=== PATIENT | female | born 1960 | race American Indian/Alaskan Native ===

== ENCOUNTER 2016-09-05 04:27 | Emergency (ER) | payer MEDICARE ==
[2016-09-05 04:46] VITALS: BP 124/99
--- NOTE | 2016-09-05 09:13 | Emergency Department Report ---
Upper Extremity - HPI Chief Complaint: Extremity Injury, Upper Stated Complaint: HAND PAIN Time Seen by Provider: 09/05/16 08:54 Upper Extremity: Right Wrist, Right Hand Occurred When: >5 Days Mechanism: Other Severity: moderate Symptoms: Yes Pain with Movement, Yes Numbness, Yes Weakness, No Deformity, No Limited Range of Movement, No Swelling, No Bruising/Ecchymosis, No Laceration or Abrasion Other History: 56-year-old female past medical history none presents with complaint of persistent pain and tingling in right middle ring and pinky finger , worse at night and in the morning, intermittent waxing and waning in intensity. Denies any direct trauma no fever no chills. Patient states she has been taking anti-inflammatories with mild relief of pain. Came to ED today because she was experiencing tingling in right index finger when she woke up this morning. Patient awake alert and oriented 3 fully ambulatory without any assistance, reports no other symptoms. ED Review of Systems ROS: Stated complaint: HAND PAIN Other details as noted in HPI Constitutional: denies: chills, fever Eyes: denies: eye pain, eye discharge, vision change ENT: denies: ear pain, throat pain Respiratory: denies: cough, shortness of breath, wheezing Cardiovascular: denies: chest pain, palpitations Endocrine: no symptoms reported Gastrointestinal: denies: abdominal pain, nausea, diarrhea Genitourinary: denies: urgency, dysuria, discharge Musculoskeletal: as per HPI, other (right middle index and pinky finger pain, wrist pain, occasional paresthesias.). denies: back pain, joint swelling, arthralgia Skin: denies: rash, lesions Neurological: denies: headache, weakness, paresthesias Psychiatric: denies: anxiety, depression Hematological/Lymphatic: denies: easy bleeding, easy bruising ED Past Medical Hx - Past Medical History Previous Medical History?: Yes Hx Hypertension: Yes (2011) Hx Heart Attack/AMI: Yes (2013) Hx Congestive Heart Failure: No Hx Diabetes: No Hx Deep Vein Thrombosis: No Hx Pulmonary Embolism: No Hx Sickle Cell Disease: No Hx Arthritis: Yes Hx Asthma: Yes Hx COPD: Yes Hx Tuberculosis: No Hx HIV: No Additional medical history: sciatica,DIVERTICULITIS. CAD - Surgical History Past Surgical History?: Yes Hx Coronary Stent: Yes Hx Open Heart Surgery: No Hx Pacemaker: No Hx Internal Defibrillator: No Hx Cholecystectomy: No Hx Appendectomy: Yes Hx Breast Surgery: No Additional Surgical History: Tubal ligation, 2 C-sections - Social History Smoking Status: Never Smoker Substance Use Type: None - Medications Home Medications: Home Medications Medication Instructions Recorded Confirmed Last Taken Type Aspirin [Aspirin TAB] 325 mg PO QDAY #30 tablet 05/15/14 08/27/16 08/27/16 Rx Isosorbide Mononitrate [Isosorbide 30 mg PO DAILY #30 tab.er.24h 05/15/1408/27/16 Rx Mononitrate ER] Lisinopril [Zestril TAB] 5 mg PO QDAY #30 tablet 05/15/14 08/27/16 08/27/16 Rx Cholecalciferol (Vitamin D3) 3,000 unit PO DAILY 06/05/15 08/27/16 08/27/16 History [Vitamin D3] Multivit-Min/FA/Calcium/Vit K1 1 each PO DAILY 06/05/15 08/27/16 08/27/16 History [Women's 50+ Daily Tablet] Atorvastatin [Lipitor Tab] 40 mg PO QHS #30 tab 10/22/15 08/27/16 08/26/16 Rx Famotidine [Pepcid] 20 mg PO BID #60 tablet 10/22/15 08/27/16 08/27/16 Rx ALBUTEROL NEB's [Proventil 0.083% 2.5 mg IH Q4H PRN #25 neb 01/25/16 08/27/16 Rx NEBS] Amitriptyline [Elavil] 10 mg PO QHS #30 tab 01/25/16 08/27/16 08/26/16 Rx Folic Acid [Folvite] 1 mg PO QDAY #30 tablet 01/25/16 08/27/16 08/27/16 Rx Ipratropium/Albuterol Sulfate 1 ampul IH TIDRT #30 ampul.neb 01/25/16 08/27/16 02/02/16 Rx [Duoneb 0.5 mg-3 mg/3 ml Soln] Multivitamin Tab W-MINERAL 1 each PO QDAY #30 tablet 01/25/16 08/27/16 08/27/16 Rx [Multiple Vitamin/Mineral (Theragran M)] [place]-3 Fatty Acids/Fish Oil [Fish 1 each PO DAILY #30 tab 01/25/16 08/27/16 Rx Oil] Pantoprazole [Protonix TAB] 20 mg PO BID #60 tablet. 02/04/16 08/27/16 Rx Cetirizine HCl [All Day Allergy] 10 mg PO DAILY 08/27/16 08/27/16 08/27/16 History Ibuprofen [Motrin] 800 mg PO Q8HR PRN #30 tablet 08/27/16 Unknown Rx Metoprolol [Lopressor TAB] 25 mg PO BID 08/27/16 08/27/16 08/27/16 History Ondansetron [Zofran Odt] 4 mg PO Q8HR PRN #20 tab.rapdis 08/27/16 Unknown Rx Oxycodone HCl/Acetaminophen 1 each PO Q6HR PRN #20 tablet 08/27/16 Unknown Rx [Percocet 10/325 mg] Prednisone [predniSONE 10 mg 10 mg PO .TAPER #1 tab.ds.pk 08/27/16 Unknown Rx (6-Day Pack, 21 Tabs)] Sennosides [Senokot] 8.6 mg PO DAILY 08/27/16 08/27/16 08/27/16 History methOCARBAMOL [Robaxin TAB] 500 mg PO Q6H 08/27/16 08/27/16 08/27/16 History oxyCODONE /ACETAMINOPHEN [Percocet 1 tab PO Q6HR PRN 08/27/16 08/27/16 Unknown History 5/325] traMADol [Ultram] 50 mg PO Q6HR PRN 08/27/16 08/27/16 Unknown History Naproxen [Naprosyn TAB] 500 mg PO BID PRN #14 tablet 09/05/16 Unknown Rx Upper Extremity Exam - Exam General: Vital signs noted. No distress. Alert and acting appropriately. Head and Torso: No HEENT Abnormality, No Neck Tenderness, No Chest/Lungs Abnormality, No Abdominal Tenderness, No Back Tenderness Shoulder Exam: Yes Normal Range of Motion in Shoulder, No Shoulder Tenderness, No Clavicle Tenderness, No Shoulder Deformity, No AC Joint Tenderness Arm Exam: No Arm/Humerus Tenderness, No Arm Deformity Elbow: No Elbow Tenderness, No Normal Range of Motion in Elbow, No Elbow Deformity Forearm: No Forearm Tenderness, No Forearm Deformity, No Pain with Pronation, No Pain with Supination Wrist: Yes Wrist Tenderness (positive Phalen and Tinel sign on clinical exam), Yes Normal ROM in Wrist (range of motion wrist fingers fully intact), No Wrist Deformity, No Snuffbox Tenderness (absolutely no snuff box tenderness), No Pain with Axial Thumb Compression Hand: Yes Normal ROM in Digit(s), No Hand Tenderness, No Hand Deformity, No Digit Tenderness, No Digit(s) Deformity, No Tendon Dysfunction CMS Exam: Yes Normal Capillary Refill (capillary refill fully intact all fingers ), No Broken Skin, No Normal Distal Pulses, No Normal Distal Sensation ED Course Vital Signs 09/05/16 09/05/16 04:34 04:45 Temperature 98.8 F 98.8 F Pulse Rate 80 80 Respiratory 18 18 Rate Blood Pressure 124/94 Blood Pressure 124/99 [Right] O2 Sat by Pulse 100 98 Oximetry ED Medical Decision Making - Medical Decision Making A/P: Carpal tunnel syndrome 1-patient has classic clinical symptoms of carpal tunnel including paresthesias in right index pinky and half of right middle finger, positive Phalen and Tinel sign on clinical exam. No trauma no signs of cellulitis distal radial pulses fully intact, capillary refill fully intact range of motion all fingers fully intact 2-emphasized to patient that she should wear a right wrist splint and follow-up with primary care doctor as well as orthopedics if pain persists or to seek out a neurology referral for nerve conduction testing and right wrist hand 3-naproxen when necessary for pain, I reinforced the importance of wearing a wrist splint and provided patient with information carpal tunnel syndrome Critical care attestation.: If time is entered above; I have spent that time in minutes in the direct care of this critically ill patient, excluding procedure time. ED Disposition Clinical Impression: Carpal tunnel syndrome of right wrist Disposition: DISCHARGED TO HOME OR SELFCARE Is pt being admited?: No Does the pt Need Aspirin: No Condition: Stable Instructions: Carpal Tunnel Syndrome (ED) Prescriptions: Naproxen [Naprosyn TAB] 500 mg PO BID PRN #14 tablet PRN Reason: Pain Referrals: PRIMARY CAREMD [Primary Care Provider] - 3-5 Days [facility] [Outside] - 3-5 Days MAKENNA HILARIO MD [Staff Physician] - 3-5 Days KIKI AMAYA MD [Staff Physician] - 3-5 Days
== END 2016-09-05 09:56 | disposition home or self-care (01) ==
LOC: ED 04:27
DX: G56.01 Carpal tunnel syndrome, right upper limb (principal); R20.2 Paresthesia of skin; I10 Essential (primary) hypertension; I25.2 Old myocardial infarction; M19.90 Unspecified osteoarthritis, unspecified site; J45.909 Unspecified asthma, uncomplicated; J44.9 Chronic obstructive pulmonary disease, unspecified; I25.10 Atherosclerotic heart disease of native coronary artery without angina pectoris; Z79.82 Long term (current) use of aspirin

== ENCOUNTER 2017-01-27 10:27 | Emergency (ER) | payer MEDICARE ==
[2017-01-27 10:57] VITALS: BP 149/106
[2017-01-27 11:25] LABS: Eosinophils % (Auto) 0.7 % (0.0-4.3); Hematocrit 39.2 % (30.3-42.9); Hemoglobin 13.3 gm/dl (10.1-14.3); Mean Corpuscular HGB Conc 34 % (30-34); Mean Corpuscular Hemoglobin 35 pg (28-32); Mean Corpuscular Volume 104 fl (79-97); Platelet Count 216 K/mm3 (140-440); Red Blood Count 3.78 M/mm3 (3.65-5.03); Red Cell Distribution Width 13.3 % (13.2-15.2); White Blood Count 11.1 K/mm3 (4.5-11.0)
[2017-01-27 11:31] LABS: Anion Gap 20 mmol/L; BUN/Creatinine Ratio 15.71; Blood Urea Nitrogen 11 mg/dL (7-17); Calcium 9.1 mg/dL (8.4-10.2); Carbon Dioxide 22 mmol/L (22-30); Chloride 102.8 mmol/L (98-107); Glucose 98 mg/dL (65-100); Sodium 141 mmol/L (137-145)
== END 2017-01-27 11:05 | disposition left against medical advice (07) ==
LOC: ED 10:27
DX: R07.89 Other chest pain (principal); R06.02 Shortness of breath; Z53.21 Procedure and treatment not carried out due to patient leaving prior to being seen by health care provider
CPT/HCPCS: 36415; 80048; 84484; 85025; 93005; 93010

== ENCOUNTER 2017-03-14 11:53 | Emergency (ER) | payer MEDICARE ==
[2017-03-14 17:03] VITALS: BP 143/101
[2017-03-14] MEDS ORDERED: MOTRIN PO ONE (17:40)
--- NOTE | 2017-03-14 18:30 | Emergency Department Report ---
Entered by PATRICIA CABEZAS, acting as scribe for JAZZ AMIN NP. Upper Extremity - HPI Chief Complaint: Extremity Injury, Upper Stated Complaint: RT HAND PAIN/NAUSEA Time Seen by Provider: 03/14/17 16:48 Upper Extremity: Right Hand (pain) Occurred When: 2 Days Severity: moderate Symptoms: Yes Pain with Movement (right hand), Yes Limited Range of Movement ( secondary to pain), No Deformity, No Numbness, No Weakness, No Swelling, No Bruising/Ecchymosis, No Laceration or Abrasion Other History: This is a 56 year old female patient who underwent carpal tunnel surgery 3 months ago presents to the ED for evaluation of right hand pain. Pt states over the past two days the pain has progressed and worsened. She denies numbness or tingling. She took gabapentin and tramadol with no relief noted. Currently wearing a velco splint for support. The carpal tunnel surgery was performed by Dr. Sanchez of [facility]. She called his office on [facility] and was told that her pain is due to arthiritis, however they did not call in a Rx for pain management. Patient started on prednisone and advised to follow up with a pain clinic which she now has an appt scheduled for April. Today she comes into the ED for pain control and states she was advised by Dr. Sanchez to the come to the ED for pain managment until seen by pain clinic. Patient states allergies to PCN. Patient denies trauma to area. Denies headache, numbness, tingling, joint swelling, joint redness, fever, chills, CP, SOB. ED Review of Systems ROS: Stated complaint: RT HAND PAIN/NAUSEA Other details as noted in HPI Comment: All other systems reviewed and negative Constitutional: no symptoms reported. denies: chills, fever Eyes: denies: eye pain, eye discharge, vision change ENT: denies: ear pain, throat pain Respiratory: denies: cough, shortness of breath Cardiovascular: denies: chest pain, palpitations Endocrine: no symptoms reported Gastrointestinal: denies: abdominal pain, nausea, vomiting Genitourinary: denies: urgency Musculoskeletal: other (right hand pain). denies: back pain Skin: denies: rash, lesions Neurological: denies: headache, weakness, numbness Psychiatric: denies: anxiety, depression Hematological/Lymphatic: denies: easy bleeding, easy bruising ED Past Medical Hx - Past Medical History Hx Hypertension: Yes (2011) Hx Heart Attack/AMI: Yes (2013) Hx Congestive Heart Failure: No Hx Diabetes: No Hx Deep Vein Thrombosis: No Hx Pulmonary Embolism: No Hx Sickle Cell Disease: No Hx Arthritis: Yes Hx Asthma: Yes Hx COPD: Yes Hx Tuberculosis: No Hx HIV: No Additional medical history: sciatica,DIVERTICULITIS. CAD - Surgical History Hx Coronary Stent: Yes Hx Open Heart Surgery: No Hx Pacemaker: No Hx Internal Defibrillator: No Hx Cholecystectomy: No Hx Appendectomy: Yes Hx Breast Surgery: No Additional Surgical History: Tubal ligation, 2 C-sections - Social History Smoking Status: Current Every Day Smoker Substance Use Type: None, Alcohol - Medications Home Medications: Home Medications Medication Instructions Recorded Confirmed Last Taken Type Aspirin [Aspirin TAB] 325 mg PO QDAY #30 tablet 05/15/14 08/27/16 08/27/16 Rx Isosorbide Mononitrate [Isosorbide 30 mg PO DAILY #30 tab.er.24h 05/15/1408/27/16 Rx Mononitrate ER] Lisinopril [Zestril TAB] 5 mg PO QDAY #30 tablet 05/15/14 08/27/16 08/27/16 Rx Cholecalciferol (Vitamin D3) 3,000 unit PO DAILY 06/05/15 08/27/16 08/27/16 History [Vitamin D3] Multivit-Min/FA/Calcium/Vit K1 1 each PO DAILY 06/05/15 08/27/16 08/27/16 History [Women's 50+ Daily Tablet] Atorvastatin [Lipitor Tab] 40 mg PO QHS #30 tab 10/22/15 08/27/16 08/26/16 Rx Famotidine [Pepcid] 20 mg PO BID #60 tablet 10/22/15 08/27/16 08/27/16 Rx ALBUTEROL NEB's [Proventil 0.083% 2.5 mg IH Q4H PRN #25 neb 01/25/16 08/27/16 Rx NEBS] Amitriptyline [Elavil] 10 mg PO QHS #30 tab 01/25/16 08/27/16 08/26/16 Rx Folic Acid [Folvite] 1 mg PO QDAY #30 tablet 01/25/16 08/27/16 08/27/16 Rx Ipratropium/Albuterol Sulfate 1 ampul IH TIDRT #30 ampul.neb 01/25/16 08/27/16 02/02/16 Rx [DUONEB *Not for PRN Use*] Multivitamin Tab W-MINERAL 1 each PO QDAY #30 tablet 01/25/16 08/27/16 08/27/16 Rx [Multiple Vitamin/Mineral (Theragran M)] [place]-3 Fatty Acids/Fish Oil [Fish 1 each PO DAILY #30 tab 01/25/16 08/27/16 Rx Oil] Pantoprazole [Protonix TAB] 20 mg PO BID #60 tablet. 02/04/16 08/27/16 Rx Cetirizine HCl [All Day Allergy] 10 mg PO DAILY 08/27/16 08/27/16 08/27/16 History Ibuprofen [Motrin] 800 mg PO Q8HR PRN #30 tablet 08/27/16 Unknown Rx Metoprolol [Lopressor TAB] 25 mg PO BID 08/27/16 08/27/16 08/27/16 History Ondansetron [Zofran Odt] 4 mg PO Q8HR PRN #20 tab.rapdis 08/27/16 Unknown Rx Oxycodone HCl/Acetaminophen 1 each PO Q6HR PRN #20 tablet 08/27/16 Unknown Rx [Percocet 10/325 mg] Prednisone [predniSONE 10 mg 10 mg PO .TAPER #1 tab.ds.pk 08/27/16 Unknown Rx (6-Day Pack, 21 Tabs)] Sennosides [Senokot] 8.6 mg PO DAILY 08/27/16 08/27/16 08/27/16 History methOCARBAMOL [Robaxin TAB] 500 mg PO Q6H 08/27/16 08/27/16 08/27/16 History oxyCODONE /ACETAMINOPHEN [Percocet 1 tab PO Q6HR PRN 08/27/16 08/27/16 Unknown History 5/325] traMADol [Ultram] 50 mg PO Q6HR PRN 08/27/16 08/27/16 Unknown History Naproxen [Naprosyn TAB] 500 mg PO BID PRN #14 tablet 09/05/16 Unknown Rx Ibuprofen [Motrin] 600 mg PO Q8H PRN #20 tablet 03/14/17 Unknown Rx Upper Extremity Exam - Exam General: Vital signs noted. No distress. Alert and acting appropriately. GENERAL: The patient is a well-developed, well-nourished female in no apparent distress. Patient is alert and acting appropriately for age. Alert and oriented 3, no apparent distress, normal gait, atraumatic. HEENT: Head is normocephalic and atraumatic. PERRL, Extraocular muscles are intact. Pupils are equal, round, and reactive to light and accommodation. Nares appeared normal. Mouth is well hydrated and without lesions. Mucous membranes are moist. Posterior pharynx clear of any exudate or lesions. Mouth is well hydrated and without lesions. Tonsils not erythematous or swollen. Uvula midline. Tongue elevated. Mucous members are moist. Posterior pharynx clear, no exudate or lesions. Patent airways. NECK: Supple. No carotid bruits. No lymphadenopathy or thyromegaly.nontender. No meningitic signs are noted. LUNGS: Clear to auscultation. Non labor breathing. No intercostal retractions. Symmetrical with respiration, no wheezing, no rales, or crackles. HEART: Regular rate and rhythm without murmur, rubs or gallops. No reproducible. S1, S2 present, regular rate and rhythm without murmur, no rubs, no gallops. ABDOMEN: Soft, nontender, and nondistended. Positive bowel sounds. No hepatosplenomegaly was noted. No guarding or rebound tenderness, negative epigastric bruit. Negative psoas sign, negative tompkins sign, negative McBurneys sign EXTREMITIES: Without any cyanosis, clubbing, rash, lesions or edema. Peripheral pulses intact. Capillary refill less than 2 seconds. Full range of motion bilaterally. NEUROLOGIC: Cranial nerves II through XII are grossly intact. Alert and oriented x 3. Normal gait. Symmetrical strength and sensation. Reflexes 2+ throughout. Cerebellar testing normal. GCS score of 15. PSYCHIATRIC: Normal affect with no suicidal or homicidal ideations. Head and Torso: No HEENT Abnormality, No Neck Tenderness, No Chest/Lungs Abnormality, No Abdominal Tenderness, No Back Tenderness Shoulder Exam: Yes Normal Range of Motion in Shoulder, No Shoulder Tenderness, No Clavicle Tenderness, No Shoulder Deformity, No AC Joint Tenderness Arm Exam: No Arm/Humerus Tenderness, No Arm Deformity Elbow: No Elbow Tenderness, No Normal Range of Motion in Elbow, No Elbow Deformity Forearm: No Forearm Tenderness, No Forearm Deformity, No Pain with Pronation, No Pain with Supination Wrist: Yes Wrist Tenderness, Yes Normal ROM in Wrist, No Wrist Deformity, No Snuffbox Tenderness, No Pain with Axial Thumb Compression Hand: Yes Normal ROM in Digit(s), No Hand Tenderness, No Hand Deformity, No Digit Tenderness, No Digit(s) Deformity, No Tendon Dysfunction CMS Exam: Yes Normal Distal Pulses, Yes Normal Capillary Refill, Yes Normal Distal Sensation, No Broken Skin ED Course Vital Signs 03/14/17 12:04 Temperature 98.5 F Pulse Rate 90 Respiratory 24 Rate Blood Pressure 155/108 O2 Sat by Pulse 100 Oximetry - Reevaluation(s) Reevaluation #1: 03/14/17 17:38 Patient is able to speak in full sentences with no signs of distress noted. - Consultations Consultation #1: 03/14/17 17:38 Dr. Barahona has been contacted and consulted about the patient. Stated he never told her to go to the ED. Dr. Barahona stated that she is in the process of getting nerve blocks by the pain managment clinic and taking Ultram. As per Dr. Barahona, he wants her to receive a prescription for Motrin 600mg and f/o with him in 3-5 days. ED Medical Decision Making - Medical Decision Making Ed course: This is a 56-year-old female that presents with right hand pain 1-Patient was examined by myself. Dr. Barahona has been contacted and consulted about the patient. Stated he never told her to go to the ED. Dr. Barahona stated that she is in the process of getting nerve blocks by the pain management clinic and taking Ultram. As per Dr. Barahona, he wants her to receive a prescription for Motrin 600mg and f/o with him in 3-5 days. 2- Patient received Mortin 600mg po in the ED as well as d/c. 3- Patient was instructed to follow-up with Dr. Barahona in 3-5 days or if symptoms progress and gets worse to return to the emergency department as soon as possible. 4- at time time of discharge, the patient does not seem toxic or ill in appearance. No acute signs of distress noted. Patient agrees to discharge treatment plan of care. No further questions noted by the patient. Critical care attestation.: If time is entered above; I have spent that time in minutes in the direct care of this critically ill patient, excluding procedure time. ED Disposition Clinical Impression: Hand pain, right Disposition: DC-01 TO HOME OR SELFCARE Is pt being admited?: No Does the pt Need Aspirin: No Condition: Stable Instructions: Ibuprofen (By mouth) Additional Instructions: follow-up with Dr. Barahona in 3-5 days or if symptoms progress and gets worse to return to the emergency department as soon as possible. Take Motrin as prescribed. Prescriptions: Ibuprofen [Motrin] 600 mg PO Q8H PRN #20 tablet PRN Reason: Pain Referrals: LILI YEE MD [Primary Care Provider] - 3-5 Days POPPY BARAHONA MD [Staff Physician] - 3-5 Days [facility] [Outside] - 3-5 Days [facility] [Outside] - 3-5 Days This documentation as recorded by the JOCELYNN rowe SHALANE,accurately reflects the service I personally performed and the decisions made by me,JAZZ AMIN, MANAGER [employer].
== END 2017-03-14 18:07 | disposition home or self-care (01) ==
LOC: ED 11:53
DX: M79.641 Pain in right hand (principal); R11.0 Nausea; I10 Essential (primary) hypertension; I25.2 Old myocardial infarction; M19.90 Unspecified osteoarthritis, unspecified site; J45.909 Unspecified asthma, uncomplicated; J44.9 Chronic obstructive pulmonary disease, unspecified; F17.210 Nicotine dependence, cigarettes, uncomplicated; Z95.1 Presence of aortocoronary bypass graft; Z79.82 Long term (current) use of aspirin
CPT/HCPCS: 99282

== ENCOUNTER 2019-05-09 08:50 | Observation (INO) | payer MEDICARE ==
[2019-05-09] MEDS ORDERED: ASPIRIN PO ONE ×2 (09:14→10:40)
[2019-05-09 09:47] LABS: Basophils # (Auto) 0.1 K/mm3 (0.0-0.1); Basophils % (Auto) 1.2 % (0.0-1.8); Eosinophils # (Auto) 0.1 K/mm3 (0.0-0.4); Eosinophils % (Auto) 0.5 % (0.0-4.3); Hematocrit 40.1 % (30.3-42.9); Hemoglobin 13.4 gm/dl (10.1-14.3); Lymphocytes # (Auto) 3.8 K/mm3 (1.2-5.4); Lymphocytes % (Auto) 32.1 % (13.4-35.0); Mean Corpuscular HGB Conc 33 % (30-34); Mean Corpuscular Volume 105 fl (79-97); Monocytes # (Auto) 0.8 K/mm3 (0.0-0.8); Monocytes % (Auto) 6.7 % (0.0-7.3); Platelet Count 280 K/mm3 (140-440); Red Blood Count 3.81 M/mm3 (3.65-5.03); Red Cell Distribution Width 13.1 % (13.2-15.2)
--- NOTE | 2019-05-09 09:52 | XRay Report ---
CHEST 1 VIEW INDICATION: Chest Pain. COMPARISON: None FINDINGS: Support devices: None. Heart: Within normal limits. Lungs/Pleura: No acute air space or interstitial disease. Additional findings: None. IMPRESSION: No acute findings. Signer Name: Guanaco Ritchie Jr, MD Signed: 05/09/2019 9:47 AM Workstation Name: [id number]
[2019-05-09 10:05] LABS: BUN/Creatinine Ratio 12; Blood Urea Nitrogen 6 mg/dL (7-17); Calcium 9.5 mg/dL (8.4-10.2); Hemolysis Index 17
[2019-05-09 10:13] LABS: INR 0.94 (0.87-1.13)
[2019-05-09] MEDS ORDERED: ZOFRAN IV ONE (10:27)
[2019-05-09] MEDS ORDERED: MORPHINE IV ONE (10:27)
[2019-05-09] MEDS ORDERED: BABY ASPIRIN PO ONE (10:27)
--- NOTE | 2019-05-09 10:32 | Emergency Department Report ---
ED Chest Pain HPI - General Chief Complaint: Chest Pain Stated Complaint: CHEST PAIN Time Seen by Provider: 05/09/19 10:21 Source: patient, EMS Mode of arrival: Ambulatory Limitations: No Limitations - History of Present Illness Initial Comments: Patient is 59 years old female with history of coronary artery disease, status post stent in 2014, COPD and hypertension. Patient presented to the ER complaining of left sided chest pain, heaviness, radiating to her abdomen, neck and left upper extremity and back. Patient stated that pain started approxim ately 8:30 this morning. Patient denied any fever or chills. Patient is complaining of nausea and vomiting. MD Complaint: chest pain -: Sudden, This morning Onset: during rest Pain Location: left chest Pain Radiation: LUE, back, neck Severity: severe Severity scale (0 -10): 10 Quality: heaviness - Related Data Home Medications Medication Instructions Recorded Confirmed Last Taken Cholecalciferol (Vitamin D3) 3,000 unit PO DAILY 06/05/15 05/09/19 05/09/19 [Vitamin D3] Multivit-Min/FA/Calcium/Vit K1 1 each PO DAILY 06/05/15 05/09/19 05/09/19 [Women's 50+ Daily Tablet] Cetirizine HCl [All Day Allergy] 10 mg PO DAILY 08/27/16 05/09/19 05/09/19 Metoprolol [Lopressor TAB] 25 mg PO BID 08/27/16 05/09/19 05/09/19 Sennosides [Senokot] 8.6 mg PO DAILY 08/27/16 05/09/19 05/09/19 methOCARBAMOL [Robaxin TAB] 500 mg PO Q6H 08/27/16 05/09/19 05/09/19 oxyCODONE /ACETAMINOPHEN [Percocet 1 tab PO Q6HR PRN 08/27/16 05/09/19 05/09/19 5/325] traMADol [Ultram] 50 mg PO Q6HR PRN 08/27/16 05/09/19 05/09/19 Previous Rx's Medication Instructions Recorded Last Taken Type Aspirin 325 mg PO QDAY #30 tablet 05/15/14 05/09/19 Rx Isosorbide Mononitrate [Isosorbide 30 mg PO DAILY #30 tab.er.24h 05/15/14 Rx Mononitrate ER] Lisinopril [Zestril TAB] 5 mg PO QDAY #30 tablet 05/15/14 05/09/19 Rx Atorvastatin [Lipitor Tab] 40 mg PO QHS #30 tab 10/22/15 05/09/19 Rx Famotidine [Pepcid] 20 mg PO BID #60 tablet 10/22/15 05/09/19 Rx ALBUTEROL NEB's [Proventil 0.083% 2.5 mg IH Q4H PRN #25 neb 01/25/16 05/09/19 Rx NEBS] Amitriptyline [Elavil] 10 mg PO QHS #30 tab 01/25/16 05/09/19 Rx Folic Acid [Folvite] 1 mg PO QDAY #30 tablet 01/25/16 05/09/19 Rx Ipratropium/Albuterol Sulfate 1 ampul IH TIDRT #30 ampul.neb 01/25/16 05/09/19 Rx [DUONEB *Not for PRN Use*] Multivitamin Tab W-MINERAL 1 each PO QDAY #30 tablet 01/25/16 05/09/19 Rx [Multiple Vitamin/Mineral (Theragran M)] Turton-3 Fatty Acids/Fish Oil [Fish 1 each PO DAILY #30 tab 01/25/16 05/09/19 Rx Oil] Pantoprazole [Protonix TAB] 20 mg PO BID #60 tablet. 02/04/16 05/09/19 Rx Ibuprofen [Motrin] 800 mg PO Q8HR PRN #30 tablet 08/27/16 05/04/19 Rx Ondansetron [Zofran Odt] 4 mg PO Q8HR PRN #20 tab.rapdis 08/27/16 05/09/19 Rx Oxycodone HCl/Acetaminophen 1 each PO Q6HR PRN #20 tablet 08/27/16 05/09/19 Rx [Percocet 10/325 mg] Prednisone [predniSONE 10 mg 10 mg PO .TAPER #1 tab.ds.pk 08/27/16 05/07/19 Rx (6-Day Pack, 21 Tabs)] Naproxen [Naprosyn TAB] 500 mg PO BID PRN #14 tablet 09/05/16 05/09/19 Rx Ibuprofen [Motrin] 600 mg PO Q8H PRN #20 tablet 03/14/17 05/09/19 Rx Allergies Allergy/AdvReac Type Severity Reaction Status Date / Time Penicillins Allergy Unknown Verified 05/09/19 10:41 Heart Score - HEART Score History: Moderately suspicious EKG: Non-specific Age: 45-65 Risk factors: > 3 risk factors or hx of atherosclerotic disease Troponin: < normal limit HEART Score: 5 - Critical Actions Critical Actions: 4-6 pts:12-16.6% risk of adverse cardiac event. Should be admitted ED Review of Systems ROS: Stated complaint: CHEST PAIN Other details as noted in HPI Comment: All other systems reviewed and negative Constitutional: denies: chills, fever Respiratory: shortness of breath. denies: cough, SOB with exertion, wheezing Cardiovascular: chest pain. denies: palpitations, dyspnea on exertion Gastrointestinal: abdominal pain, nausea, vomiting. denies: diarrhea, constipation, hematemesis, melena, hematochezia Musculoskeletal: denies: back pain Neurological: denies: headache, weakness, numbness, paresthesias, confusion, abnormal gait ED Past Medical Hx - Past Medical History Previous Medical History?: Yes Hx Hypertension: Yes (2011) Hx Heart Attack/AMI: Yes (2013) Hx Congestive Heart Failure: No Hx Diabetes: No Hx Deep Vein Thrombosis: No Hx Pulmonary Embolism: No Hx Sickle Cell Disease: No Hx Arthritis: Yes Hx Asthma: Yes Hx COPD: Yes Hx Tuberculosis: No Hx HIV: No Additional medical history: sciatica,DIVERTICULITIS. CAD, stents - Surgical History Past Surgical History?: Yes Hx Coronary Stent: Yes Hx Open Heart Surgery: No Hx Pacemaker: No Hx Internal Defibrillator: No Hx Cholecystectomy: No Hx Appendectomy: Yes Hx Breast Surgery: No Additional Surgical History: Tubal ligation, 2 C-sections - Social History Smoking Status: Current Every Day Smoker Substance Use Type: Alcohol - Medications Home Medications: Home Medications Medication Instructions Recorded Confirmed Last Taken Type Aspirin 325 mg PO QDAY #30 tablet 05/15/14 05/09/19 05/09/19 Rx Isosorbide Mononitrate [Isosorbide 30 mg PO DAILY #30 tab.er.24h 05/15/14 05/09/19 05/09/19 Rx Mononitrate ER] Lisinopril [Zestril TAB] 5 mg PO QDAY #30 tablet 05/15/14 05/09/19 05/09/19 Rx Cholecalciferol (Vitamin D3) 3,000 unit PO DAILY 06/05/15 05/09/19 05/09/19 History [Vitamin D3] Multivit-Min/FA/Calcium/Vit K1 1 each PO DAILY 06/05/15 05/09/19 05/09/19 History [Women's 50+ Daily Tablet] Atorvastatin [Lipitor Tab] 40 mg PO QHS #30 tab 10/22/15 05/09/19 05/09/19 Rx Famotidine [Pepcid] 20 mg PO BID #60 tablet 10/22/15 05/09/19 05/09/19 Rx ALBUTEROL NEB's [Proventil 0.083% 2.5 mg IH Q4H PRN #25 neb 01/25/16 05/09/19 05/09/19 Rx NEBS] Amitriptyline [Elavil] 10 mg PO QHS #30 tab 01/25/16 05/09/19 05/09/19 Rx Folic Acid [Folvite] 1 mg PO QDAY #30 tablet 01/25/16 05/09/19 05/09/19 Rx Ipratropium/Albuterol Sulfate 1 ampul IH TIDRT #30 ampul.neb 01/25/16 05/09/19 05/09/19 Rx [DUONEB *Not for PRN Use*] Multivitamin Tab W-MINERAL 1 each PO QDAY #30 tablet 01/25/16 05/09/19 05/09/19 Rx [Multiple Vitamin/Mineral (Theragran M)] Turton-3 Fatty Acids/Fish Oil [Fish 1 each PO DAILY #30 tab 01/25/16 05/09/19 05/09/19 Rx Oil] Pantoprazole [Protonix TAB] 20 mg PO BID #60 tablet. 02/04/16 05/09/19 05/09/19 Rx Cetirizine HCl [All Day Allergy] 10 mg PO DAILY 08/27/16 05/09/19 05/09/19 History Ibuprofen [Motrin] 800 mg PO Q8HR PRN #30 tablet 08/27/16 05/09/19 05/04/19 Rx Metoprolol [Lopressor TAB] 25 mg PO BID 08/27/16 05/09/19 05/09/19 History Ondansetron [Zofran Odt] 4 mg PO Q8HR PRN #20 tab.rapdis 08/27/16 05/09/19 05/09/19 Rx Oxycodone HCl/Acetaminophen 1 each PO Q6HR PRN #20 tablet 08/27/16 05/09/19 05/09/19 Rx [Percocet 10/325 mg] Prednisone [predniSONE 10 mg 10 mg PO .TAPER #1 tab.ds.pk 08/27/16 05/09/19 05/07/19 Rx (6-Day Pack, 21 Tabs)] Sennosides [Senokot] 8.6 mg PO DAILY 08/27/16 05/09/19 05/09/19 History methOCARBAMOL [Robaxin TAB] 500 mg PO Q6H 08/27/16 05/09/19 05/09/19 History oxyCODONE /ACETAMINOPHEN [Percocet 1 tab PO Q6HR PRN 08/27/16 05/09/19 05/09/19 History 5/325] traMADol [Ultram] 50 mg PO Q6HR PRN 08/27/16 05/09/19 05/09/19 History Naproxen [Naprosyn TAB] 500 mg PO BID PRN #14 tablet 09/05/16 05/09/19 05/09/19 Rx Ibuprofen [Motrin] 600 mg PO Q8H PRN #20 tablet 03/14/17 05/09/19 05/09/19 Rx ED Physical Exam - General Limitations: No Limitations General appearance: alert, in no apparent distress - Head Head exam: Present: atraumatic, normocephalic - Eye Eye exam: Present: normal appearance, PERRL - ENT ENT exam: Present: normal exam, normal orophraynx, mucous membranes moist - Neck Neck exam: Present: normal inspection, full ROM. Absent: tenderness, meningismus, lymphadenopathy, thyromegaly - Respiratory Respiratory exam: Present: normal lung sounds bilaterally - Cardiovascular Cardiovascular Exam: Present: regular rate, normal rhythm, normal heart sounds - GI/Abdominal GI/Abdominal exam: Present: soft, normal bowel sounds. Absent: distended, tenderness, guarding, rebound, rigid, mass, bruit, pulsatile mass, hernia - Extremities Exam Extremities exam: Present: normal inspection, full ROM, normal capillary refill. Absent: tenderness, pedal edema, calf tenderness - Back Exam Back exam: Present: normal inspection, full ROM. Absent: CVA tenderness (R), CVA tenderness (L), muscle spasm, paraspinal tenderness, vertebral tenderness, rash noted - Neurological Exam Neurological exam: Present: alert, oriented X3, CN II-XII intact, normal gait, reflexes normal - Psychiatric Psychiatric exam: Present: normal mood - Skin Skin exam: Present: warm, intact, normal color ED Course Vital Signs 05/09/19 05/09/19 05/09/19 09:11 10:37 12:19 Temperature 98 F 98.0 F Pulse Rate 64 64 58 L Respiratory 10 L 16 16 Rate Blood Pressure 122/77 Blood Pressure 133/86 135/80 [Right] O2 Sat by Pulse 100 98 98 Oximetry PAVEL score - Pavel Score Age > 65: (0) No Aspirin use within the Past 7 Days: (1) Yes 3 or more CAD Risk Factors: (1) Yes (possibly. Obesity and hypertension) 2 or more Angina events in past 24 hrs: (0) No Known CAD with more than 50% Stenosis: (0) No Elevated Cardiac Markers: (0) No ST Deviation Greater than 0.5mm: (0) No PAVEL Score: 2 ED Medical Decision Making - Lab Data Result diagrams: 05/09/19 09:23 05/09/19 09:23 - EKG Data -: EKG Interpreted by Ia EKG shows normal: sinus rhythm Rate: normal - EKG Data Interpretation: no acute changes - Radiology Data Radiology results: report reviewed Referring Physician: IVORY BOWDEN Patient Name: AI KEENAN Date of : 1960 Sex: Female Report Date: 2019-05-09 Report Status: [place] [address] Cat Scan Report Signed Patient: IA KEENAN MR#: [id number] : 1960 Acct:[id number] Age/Sex: 59 / F ADM Date: 05/09/19 Loc: ED Attending Dr: Ordering Physician: IVORY BOWDEN Date of Service: 05/09/19 Procedure(s): CT abdomen pelvis w con Accession Number(s): [id number] cc: IVORY BOWDEN CT ABDOMEN AND PELVIS WITH CONTRAST HISTORY: Left lower quadrant and left flank pain COMPARISON: None. TECHNIQUE: Axial CT images were obtained through the abdomen and pelvis after 100 cc of Omnipaque 300 intravenously. Sagittal and coronal reformatted images. All CT scans at this location are performed using CT dose reduction for ALARA by means of automated exposure control. FINDINGS: CT ABDOMEN: Lung Bases: Clear. Liver: Moderate diffuse fatty infiltration throughout the liver is noted. No enlargement, mass or surface nodularity. Biliary: No significant abnormality. Spleen: No significant abnormality. Unenlarged. Pancreas: No significant abnormality. Adrenals: No significant abnormality. Kidneys: No significant abnormality. Lymphatics: No lymphadenopathy. Vasculature: No significant abnormality. Bowel/Peritoneum: There are numerous diverticula throughout the length of the transverse, descending and sigmoid colon. No acute inflammatory changes are identified. No evidence for obstruction or obvious mass. No free fluid or free air. The appendix is not confidently identified, correlate with surgical history. CT PELVIS: : No significant abnormality. Osseous Structures: No significant abnormality. Additional Findings: None IMPRESSION: No acute process is identified. Hepatic steatosis. Diverticulosis of the distal colon. Signer Name: Guanaco Ritchie Jr, MD Signed: 05/09/2019 11:56 AM Workstation Name: [id number] Transcribed By: TTR Dictated By: GUANACO RITCHIE JR, MD Electronically Authenticated By: GUANACO RITCHIE JR, MD Signed Date/Time: 05/09/19 1156 DD/ 1152 TD/TT: - Medical Decision Making Patient is 59 years old female with history of coronary artery disease, status post stent in 2015, COPD and hypertension. Patient presented to the ER complaining of left sided chest pain, heaviness, radiating to her abdomen, neck and left upper extremity and back. Patient stated that pain started approximately 8:30 this morning. Patient denied any fever or chills. Patient is complaining of nausea and vomiting. Patient EKG is negative for ST elevation. Chest x-ray is unremarkable. Labs reviewed and is unremarkable including a negative troponin so far. CT abdomen and pelvis is negative for acute finding. I discussed the patient was , he had great admitted the patient to medical service for further management. Critical care attestation.: If time is entered above; I have spent that time in minutes in the direct care of this critically ill patient, excluding procedure time. ED Disposition Clinical Impression: Unstable angina, Abdominal pain, Nausea and vomiting Disposition: OP ADMIT IP TO THIS HOSP Is pt being admited?: Yes Condition: Stable Instructions: Angina (ED) Referrals: PAXTON PENA MD [Primary Care Provider] - 3-5 Days
[2019-05-09] MEDS ORDERED: BABY ASPIRIN ONE (10:46)
[2019-05-09 11:16] LABS: Bilirubin,Urine NEG (Negative); Blood,Urine SM (Negative); Color,Urine Straw (Yellow); Protein,Urine <15 mg/dL mg/dL (Negative); RBC,Urine < 1.0 /HPF (0.0-6.0); Urobilinogen,Urine < 2.0 mg/dL (<2.0)
--- NOTE | 2019-05-09 12:00 | Cat Scan Report ---
CT ABDOMEN AND PELVIS WITH CONTRAST HISTORY: Left lower quadrant and left flank pain COMPARISON: None. TECHNIQUE: Axial CT images were obtained through the abdomen and pelvis after 100 cc of Omnipaque 300 intravenously. Sagittal and coronal reformatted images. All CT scans at this location are performed using CT dose reduction for ALARA by means of automated exposure control. FINDINGS: CT ABDOMEN: Lung Bases: Clear. Liver: Moderate diffuse fatty infiltration throughout the liver is noted. No enlargement, mass or rama face nodularity. Biliary: No significant abnormality. Spleen: No significant abnormality. Unenlarged. Pancreas: No significant abnormality. Adrenals: No significant abnormality. Kidneys: No significant abnormality. Lymphatics: No lymphadenopathy. Vasculature: No significant abnormality. Bowel/Peritoneum: There are numerous diverticula throughout the length of the transverse, descending and sigmoid colon. No acute inflammatory changes are identified. No evidence for obstruction or obvio us mass. No free fluid or free air. The appendix is not confidently identified, correlate with surgic al history. CT PELVIS: : No significant abnormality. Osseous Structures: No significant abnormality. Additional Findings: None IMPRESSION: No acute process is identified. Hepatic steatosis. Diverticulosis of the distal colon. Signer Name: Guanaco Ritchie Jr, MD Signed: 05/09/2019 11:56 AM Workstation Name: [id number]
[2019-05-09] MEDS: DILAUDID IV PRN (18:41)
--- NOTE | 2019-05-09 20:02 | History and Physical Report ---
History of Present Illness Date of examination: 05/09/19 Date of admission: 05/09/19 12:43 Chief complaint: Chest pain since morning History of present illness: 59-year-old female with history of coronary artery disease, hypertension, vitamin D deficiency, hyperlipidemia, GERD, asthma, depression, GERD, arthritis and chronic pain comes in for left-sided chest pain since 8:30 AM. Chest pain is intermittent in nature with radiation to the neck and left upper extremity. Chest pain is 6 on a scale of 1-10. Intermittent in nature. No diaphoresis. No shortness of breath. Pain is dull in character. No exacerbating or relieving factors. No recent travel he had no fever or chills. No cough. Past Medical History Previous Medical History?: Yes Hypertension: Yes (2011) Heart Attack/AMI: Yes (2013) Arthritis: Yes Asthma: Yes COPD: Yes Additional medical history: sciatica,DIVERTICULITIS. CAD, stents - Surgical History Past Surgical History?: Yes Coronary Stent: Yes Tubal ligation, 2 C-sections Ovarian cyst removal Appendectomy. Review Social History family history Smoking Status: Current Every Day Smoker Substance Use Type: Alcohol Family history HCancer negative tn Medications Home Medications: Home Medications Medication Instructions Recorded Confirmed Last Taken Type Aspirin 325 mg PO QDAY #30 tablet 05/15/14 05/09/19 05/09/19 Rx Isosorbide Mononitrate [Isosorbide 30 mg PO DAILY #30 tab.er.24h 05/15/14 05/09/19 05/09/19 Rx Mononitrate ER] Lisinopril [Zestril TAB] 5 mg PO QDAY #30 tablet 05/15/14 05/09/19 05/09/19 Rx Cholecalciferol (Vitamin D3) 3,000 unit PO DAILY 06/05/15 05/09/19 05/09/19 History [Vitamin D3] Multivit-Min/FA/Calcium/Vit K1 1 each PO DAILY 06/05/15 05/09/19 05/09/19 History [Women's 50+ Daily Tablet] Atorvastatin [Lipitor Tab] 40 mg PO QHS #30 tab 10/22/15 05/09/19 05/09/19 Rx Famotidine [Pepcid] 20 mg PO BID #60 tablet 10/22/15 05/09/19 05/09/19 Rx ALBUTEROL NEB's [Proventil 0.083% 2.5 mg IH Q4H PRN #25 neb 01/25/16 05/09/19 05/09/19 Rx NEBS] Amitriptyline [Elavil] 10 mg PO QHS #30 tab 01/25/16 05/09/19 05/09/19 Rx Folic Acid [Folvite] 1 mg PO QDAY #30 tablet 01/25/16 05/09/19 05/09/19 Rx Ipratropium/Albuterol Sulfate 1 ampul IH TIDRT #30 ampul.neb 01/25/16 05/09/19 05/09/19 Rx [DUONEB *Not for PRN Use*] Multivitamin Tab W-MINERAL 1 each PO QDAY #30 tablet 01/25/16 05/09/19 05/09/19 Rx [Multiple Vitamin/Mineral (Theragran M)] [place]-3 Fatty Acids/Fish Oil [Fish 1 each PO DAILY #30 tab 01/25/16 05/09/19 05/09/19 Rx Oil] Pantoprazole [Protonix TAB] 20 mg PO BID #60 tablet. 02/04/16 05/09/19 05/09/19 Rx Cetirizine HCl [All Day Allergy] 10 mg PO DAILY 08/27/16 05/09/19 05/09/19 History Ibuprofen [Motrin] 800 mg PO Q8HR PRN #30 tablet 08/27/16 05/09/19 05/04/19 Rx Metoprolol [Lopressor TAB] 25 mg PO BID 08/27/16 05/09/19 05/09/19 History Ondansetron [Zofran Odt] 4 mg PO Q8HR PRN #20 tab.rapdis 08/27/16 05/09/19 05/09/19 Rx Oxycodone HCl/Acetaminophen 1 each PO Q6HR PRN #20 tablet 08/27/16 05/09/19 05/09/19 Rx [Percocet 10/325 mg] Prednisone [predniSONE 10 mg 10 mg PO .TAPER #1 tab.ds.pk 08/27/16 05/09/19 05/07/19 Rx (6-Day Pack, 21 Tabs)] Sennosides [Senokot] 8.6 mg PO DAILY 08/27/16 05/09/19 05/09/19 History methOCARBAMOL [Robaxin TAB] 500 mg PO Q6H 08/27/16 05/09/19 05/09/19 History oxyCODONE /ACETAMINOPHEN [Percocet 1 tab PO Q6HR PRN 08/27/16 05/09/19 05/09/19 History 5/325] traMADol [Ultram] 50 mg PO Q6HR PRN 08/27/16 05/09/19 05/09/19 History Naproxen [Naprosyn TAB] 500 mg PO BID PRN #14 tablet 09/05/16 05/09/19 05/09/19 Rx Ibuprofen [Motrin] 600 mg PO Q8H PRN #20 tablet 03/14/17 05/09/19 05/09/19 Rx Review of Systems ROS: Stated complaint: CHEST PAIN Other details as noted in HPI Comment: All other systems reviewed and negative Constitutional: denies: chills, fever Respiratory: shortness of breath. denies: cough, SOB with exertion, wheezing Cardiovascular: chest pain. denies: palpitations, dyspnea on exertion Gastrointestinal: abdominal pain, nausea, vomiting. denies: diarrhea, constipation, hematemesis, melena, hematochezia Musculoskeletal: denies: back pain Neurological: denies: headache, weakness, numbness, paresthesias, confusion, abnormal gait 1 Medications and Allergies Allergies Allergy/AdvReac Type Severity Reaction Status Date / Time Penicillins Allergy Unknown Verified 05/09/19 10:41 Home Medications Medication Instructions Recorded Confirmed Last Taken Type Aspirin 325 mg PO QDAY #30 tablet 05/15/14 05/09/19 05/09/19 Rx Isosorbide Mononitrate [Isosorbide 30 mg PO DAILY #30 tab.er.24h 05/15/1405/0905/09/19 Rx Mononitrate ER] Lisinopril [Zestril TAB] 5 mg PO QDAY #30 tablet 05/15/14 05/09/19 05/09/19 Rx Cholecalciferol (Vitamin D3) 3,000 unit PO DAILY 06/05/15 05/09/19 05/09/19 His tory [Vitamin D3] Multivit-Min/FA/Calcium/Vit K1 1 each PO DAILY 06/05/15 05/09/19 05/09/19 History [Women's 50+ Daily Tablet] Atorvastatin [Lipitor Tab] 40 mg PO QHS #30 tab 10/22/15 05/09/19 05/09/19 Rx Famotidine [Pepcid] 20 mg PO BID #60 tablet 10/22/15 05/09/19 05/09/19 Rx ALBUTEROL NEB's [Proventil 0.083% 2.5 mg IH Q4H PRN #25 neb 01/25/16 05/09/19 05/09/19 Rx NEBS] Amitriptyline [Elavil] 10 mg PO QHS #30 tab 01/25/16 05/09/19 05/09/19 Rx Folic Acid [Folvite] 1 mg PO QDAY #30 tablet 01/25/16 05/09/19 05/09/19 Rx Ipratropium/Albuterol Sulfate 1 ampul IH TIDRT #30 ampul.neb 01/25/16 05/09/19 05/09/19 Rx [DUONEB *Not for PRN Use*] Multivitamin Tab W-MINERAL 1 each PO QDAY #30 tablet 01/25/16 05/09/19 05/09/19 Rx [Multiple Vitamin/Mineral (Theragran M)] [place]-3 Fatty Acids/Fish Oil [Fish 1 each PO DAILY #30 tab 01/25/16 05/09/1906/17 Rx Oil] Pantoprazole [Protonix TAB] 20 mg PO BID #60 tablet. 02/04/16 05/09/1905/09 Rx Cetirizine HCl [All Day Allergy] 10 mg PO DAILY 08/27/16 05/09/19 05/09/19 History Ibuprofen [Motrin] 800 mg PO Q8HR PRN #30 tablet 08/27/16 05/09/19 05/04/19 Rx Metoprolol [Lopressor TAB] 25 mg PO BID 08/27/16 05/09/19 05/09/19 History Ondansetron [Zofran Odt] 4 mg PO Q8HR PRN #20 tab.rapdis 08/27/16 05/09/19 05/09/19 Rx Oxycodone HCl/Acetaminophen 1 each PO Q6HR PRN #20 tablet 08/27/16 05/09/19 05/09/19 Rx [Percocet 10/325 mg] Prednisone [predniSONE 10 mg 10 mg PO .TAPER #1 tab.ds.pk 08/27/16 05/09/19 05/07/19 Rx (6-Day Pack, 21 Tabs)] Sennosides [Senokot] 8.6 mg PO DAILY 08/27/16 05/09/19 05/09/19 History methOCARBAMOL [Robaxin TAB] 500 mg PO Q6H 08/27/16 05/09/19 05/09/19 History oxyCODONE /ACETAMINOPHEN [Percocet 1 tab PO Q6HR PRN 08/27/16 05/09/19 05/09/19 History 5/325] traMADol [Ultram] 50 mg PO Q6HR PRN 08/27/16 05/09/19 05/09/19 History Naproxen [Naprosyn TAB] 500 mg PO BID PRN #14 tablet 09/05/16 05/09/19 05/09/19 Rx Ibuprofen [Motrin] 600 mg PO Q8H PRN #20 tablet 03/14/17 05/09/19 05/09/19 Rx Active Meds: Active Medications Hydromorphone HCl (Dilaudid) 0.5 mg IV Q3H PRN PRN Reason: Pain , Severe (7-10) Last Admin: 05/09/19 18:41 Dose: 0.5 mg Documented by: Exam - Constitutional Vitals: Temp Pulse Resp BP Pulse Ox 98.0 F 64 18 134/81 100 05/09/19 16:31 05/09/19 16:31 05/09/19 16:31 05/09/19 16:31 05/09/19 16:31 General appearance: Present: no acute distress, well-nourished - EENT Eyes: Present: PERRL ENT: hearing intact, clear oral mucosa - Neck Neck: Present: supple, normal ROM - Respiratory Respiratory effort: normal Respiratory: bilateral: CTA - Cardiovascular Heart rate: 52 Rhythm: regular Heart Sounds: Present: S1 & S2. Absent: rub, click - Extremities Extremities: no ischemia, pulses intact (who comes in time), pulses symmetrical, No edema Peripheral Pulses: within normal limits - Abdominal General gastrointestinal: Present: soft, non-tender, non-distended, normal bowel sounds Female genitourinary: Present: normal - Rectal Rectal Exam: deferred - Integumentary Integumentary: Present: clear, warm, dry - Musculoskeletal Musculoskeletal: gait normal, strength equal bilaterally - Psychiatric Psychiatric: appropriate mood/affect, intact judgment & insight - Neurologic Neurologic: CNII-XII intact, moves all extremities - Allied Health Allied health notes reviewed: nursing, case management Results - Labs CBC & Chem 7: 05/09/19 09:23 05/09/19 09:23 Labs: Laboratory Last Values WBC 12.0 K/mm3 (4.5-11.0) H 05/09/19 09: RBC 3.81 M/mm3 (3.65-5.03) 05/09/19 09: Hgb 13.4 gm/dl (10.1-14.3) 05/09/19 09: Hct 40.1 % (30.3-42.9) 05/09/19 09: MCV 105 fl (79-97) H 05/09/19 09: MCH 35 pg (28-32) H 05/09/19 09: MCHC 33 % (30-34) 05/09/19 09: RDW 13.1 % (13.2-15.2) L 05/09/19 09: Plt Count 280 K/mm3 (140-440) 05/09/19 09:23 Lymph % (Auto) 32.1 % (13.4-35.0) 05/09/19 09: [place] % (Auto) 6.7 % (0.0-7.3) 05/09/19 09:23 Eos % (Auto) 0.5 % (0.0-4.3) 05/09/19 09:23 Baso % (Auto) 1.2 % (0.0-1.8) 05/09/19 09:23 Lymph # 3.8 K/mm3 (1.2-5.4) 05/09/19 09:23 [place] # 0.8 K/mm3 (0.0-0.8) 05/09/19 09: Eos # 0.1 K/mm3 (0.0-0.4) 05/09/19 09: Baso # 0.1 K/mm3 (0.0-0.1) 05/09/19 09:23 Seg Neutrophils % 59.5 % (40.0-70.0) 05/09/19 09:23 Seg Neutrophils # 7.1 K/mm3 (1.8-7.7) 05/09/19 09:23 PT 12.3 Sec. (12.2-14.9) 05/09/19 09:23 INR 0.94 (0.87-1.13) 05/09/19 09:23 APTT 34.0 Sec. (24.2-36.6) 05/09/19 09:23 Sodium 137 mmol/L (137-145) 05/09/19 09:23 Potassium 3.9 mmol/L (3.6-5.0) 05/09/19 09:23 Chloride 101.0 mmol/L (98-107) 05/09/19 09:23 Carbon Dioxide 19 mmol/L (22-30) L 05/09/19 09:23 21 mmol/L 05/09/19 09:23 BUN 6 mg/dL (7-17) L 05/09/19 09:23 0.5 mg/dL (0.7-1.2) L 05/09/19 09:23 Estimated GFR > 60 ml/min 05/09/19 09:23 12 % 05/09/19 09:23 Glucose 89 mg/dL (65-100) 05/09/19 09:23 Calcium 9.5 mg/dL (8.4-10.2) 05/09/19 09:23 < 0.010 ng/mL (0.00-0.029) 05/09/19 14:48 NT-Pro-B Natriuret Pep 68.85 pg/mL (0-900) 05/09/19 10:36 41 units/L (13-60) 05/09/19 10:36 Straw (Yellow) 05/09/19 10:49 Clear (Clear) 05/09/19 10:49 5.0 (5.0-7.0) 05/09/19 10:49 Ur Specific [place] 1.004 (1.003-1.030) 05/09/19 10:49 <15 mg/dl mg/dL (Negative) 05/09/19 10:49 Neg mg/dL (Negative) 05/09/19 10:49 Neg mg/dL (Negative) 05/09/19 10:49 Sm (Negative) 05/09/19 10:49 Neg (Negative) 05/09/19 10:49 Neg (Negative) 05/09/19 10:49 < 2.0 mg/dL (<2.0) 05/09/19 10:49 Ur Leukocyte Esterase Tr (Negative) 05/09/19 10:49 1.0 /HPF (0.0-6.0) 05/09/19 10:49 < 1.0 /HPF (0.0-6.0) 05/09/19 10:49 U Epithel Cells (Auto) < 1.0 /HPF (0-13.0) 05/09/19 10:49 Short CBC 05/09/19 Range/Units 09:23 WBC 12.0 H (4.5-11.0) K/mm3 Hgb 13.4 (10.1-14.3) gm/dl Hct 40.1 (30.3-42.9) % Plt Count 280 (140-440) K/mm3 [facility] 05/09/19 09:23 Sodium 137 Potassium 3.9 Chloride 101.0 Carbon Dioxide 19 L BUN 6 L Creatinine 0.5 L Glucose 89 Calcium 9.5 Cardiac Enzymes 05/09/19 05/09/19 05/09/19 Range/Units 09:23 12:03 14:48 Troponin T < 0.010 < 0.010 < 0.010 (0.00-0.029) ng/mL Urine 05/09/19 Range/Units 10:49 Urine Color Straw (Yellow) Urine pH 5.0 (5.0-7.0) Ur Specific [place] 1.004 (1.003-1.030) Urine Protein <15 mg/dl (Negative) mg/dL Urine Glucose (UA) Neg (Negative) mg/dL Short CBC 05/09/19 Range/Units 09:23 WBC 12.0 H (4.5-11.0) K/mm3 Hgb 13.4 (10.1-14.3) gm/dl Hct 40.1 (30.3-42.9) % Plt Count 280 (140-440) K/mm3 [facility] 05/09/19 09:23 Sodium 137 Potassium 3.9 Chloride 101.0 Carbon Dioxide 19 L BUN 6 L Creatinine 0.5 L Glucose 89 Calcium 9.5 Cardiac Enzymes 05/09/19 05/09/19 05/09/19 Range/Units 09:23 12:03 14:48 Troponin T < 0.010 < 0.010 < 0.010 (0.00-0.029) ng/mL Urine 05/09/19 Range/Units 10:49 Urine Color Straw (Yellow) Urine pH 5.0 (5.0-7.0) Ur Specific [place] 1.004 (1.003-1.030) Urine Protein <15 mg/dl (Negative) mg/dL Urine Glucose (UA) Neg (Negative) mg/dL - Imaging and Cardiology EKG: report reviewed (sinus bradycardia 52/m no acute ST-T wave changes) Chest x-ray: report reviewed (no acute findings) CT scan - abdomen: report reviewed (hepatic steatosis, diverticulosis of the colon) Assessment and Plan Advance Directives: Yes (full code) VTE prophylaxis?: Chemical Plan of care discussed with patient/family: Yes - Patient Problems (1) Chest pain Current Visit: No Status: Acute Qualifiers: Chest pain type: unspecified Qualified Code(s): R07.9 - Chest pain, unspecified Plan to address problem: Chest pain rule out HI protocol Serial troponins Lexiscan ordered Cardiology consult requested Differential of costochondritis and GERD considered Costochondritis unlikely Patient has history of coronary artery disease (2) Hyperlipidemia Current Visit: No Status: Chronic Qualifiers: Hyperlipidemia type: mixed hyperlipidemia Qualified Code(s): E78.2 - Mixed hyperlipidemia Plan to address problem: Statins initiated (3) Hypertension Current Visit: No Status: Chronic Qualifiers: Hypertension type: essential hypertension Qualified Code(s): I10 - Essential (primary) hypertension Plan to address problem: Continue antihypertensives (4) Obstructive airway disease Current Visit: Yes Status: Chronic Qualifiers: Emphysema type: unspecified Plan to address problem: Continue bronchodilators (5) Vitamin D deficiency Current Visit: Yes Status: Chronic Plan to address problem: Continue vitamin D (6) Coronary artery disease Current Visit: Yes Status: Chronic Qualifiers: Coronary Disease-Associated Artery/Lesion type: unspecified vessel or lesion type Plan to address problem: Continue isosorbide mononitrate and aspirin (7) GERD (gastroesophageal reflux disease) Current Visit: Yes Status: Chronic Qualifiers: Esophagitis presence: without esophagitis Qualified Code(s): K21.9 - Gastro-esophageal reflux disease without esophagitis Plan to address problem: Continue PPIs (8) Nicotine dependence Current Visit: Yes Status: Chronic Qualifiers: Nicotine product type: cigarettes Plan to address problem: Smokes about 4-6 cigarettes per day Patient counseled about stopping smoking and the effects of smoking on heart disease NicoDerm patch initiated (9) DVT prophylaxis Current Visit: No Status: Acute Plan to address problem: Patient on Lovenox and GI prophylaxis
[2019-05-09] MEDS ORDERED: ZOFRAN ODT PO PRN (20:03)
[2019-05-09] MEDS ORDERED: PERCOCET 5/325 PO PRN (20:03)
[2019-05-09] MEDS ORDERED: PROVENTIL IH PRN (20:03)
[2019-05-09] MEDS ORDERED: IBUPROFEN PO PRN (20:03)
[2019-05-09] MEDS ORDERED: REGLAN IV PRN (20:14)
[2019-05-09] MEDS ORDERED: TYLENOL PO PRN (20:14)
[2019-05-09] MEDS ORDERED: SODIUM CHLORIDE FLUSH SYRINGE 10 ML IV PRN (20:14)
[2019-05-09] MEDS ORDERED: CHOLECALCIFEROL 3000 UNIT PO SCH (20:15)
[2019-05-09] MEDS ORDERED: CALCIUM PO SCH (20:15)
[2019-05-09] MEDS ORDERED: VIT K1 PO SCH (20:15)
[2019-05-09] MEDS ORDERED: [UNRECOGNIZED DRUG - OTHER] PO SCH (20:15)
[2019-05-09] MEDS ORDERED: MULTIVIT MIN PO SCH (20:15)
[2019-05-09] MEDS ORDERED: NON-FORMULARY (Cetirizine Hcl [All Day Allergy] 10 MG) PO SCH (20:15)
[2019-05-09] MEDS: ZOFRAN IV PRN (20:39)
[2019-05-09] MEDS: ASPIRIN PO SCH (20:40)
[2019-05-09] MEDS ORDERED: PEPCID PO SCH (22:00)
[2019-05-09] MEDS ORDERED: ELAVIL PO SCH (22:00)
[2019-05-09] MEDS: LOPRESSOR PO SCH (22:12)
[2019-05-09] MEDS: PROTONIX PO SCH (22:15)
[2019-05-09] MEDS: SODIUM CHLORIDE FLUSH SYRINGE 10 ML IV SCH (22:15)
[2019-05-09] MEDS: THERAGRAN-M Tab PO SCH (22:16)
[2019-05-09] MEDS: CLARITIN PO SCH (22:16)
[2019-05-09] MEDS: FOLVITE PO SCH (22:16)
[2019-05-09] MEDS: ZESTRIL PO SCH (22:16)
[2019-05-09] MEDS: IMDUR PO SCH (22:17)
[2019-05-09] MEDS: ROBAXIN PO SCH (22:19)
[2019-05-10] MEDS: DILAUDID IV PRN ×3 (00:36→11:54)
[2019-05-10] MEDS: ZOFRAN IV PRN (05:38)
[2019-05-10] MEDS: ROBAXIN PO SCH ×2 (05:39→11:57)
[2019-05-10 06:37] LABS: Basophils % (Auto) 0.3 % (0.0-1.8); Eosinophils # (Auto) 0.1 K/mm3 (0.0-0.4); Eosinophils % (Auto) 1.4 % (0.0-4.3); Hematocrit 37.7 % (30.3-42.9); Hemoglobin 12.7 gm/dl (10.1-14.3); Lymphocytes # (Auto) 3.1 K/mm3 (1.2-5.4); Lymphocytes % (Auto) 40.3 % (13.4-35.0); Mean Corpuscular HGB Conc 34 % (30-34); Mean Corpuscular Volume 105 fl (79-97); Monocytes # (Auto) 0.6 K/mm3 (0.0-0.8); Monocytes % (Auto) 7.4 % (0.0-7.3); Platelet Count 235 K/mm3 (140-440); Red Blood Count 3.59 M/mm3 (3.65-5.03)
[2019-05-10 06:45] LABS: Alanine Aminotransferase 15 units/L (7-56); BUN/Creatinine Ratio 10; Blood Urea Nitrogen 6 mg/dL (7-17); Calcium 8.9 mg/dL (8.4-10.2); Hemolysis Index 9
[2019-05-10] MEDS ORDERED: LEXISCAN IV ONE (06:59)
[2019-05-10] MEDS: DUONEB *Not for PRN Use IH SCH ×3 (08:35→16:46)
[2019-05-10] MEDS ORDERED: VITAMIN D3 PO SCH (10:00)
[2019-05-10 10:39] VITALS: BP 127/86
[2019-05-10] MEDS: ASPIRIN PO SCH (11:54)
[2019-05-10] MEDS: IMDUR PO SCH (11:55)
[2019-05-10] MEDS: FOLVITE PO SCH (11:55)
[2019-05-10] MEDS: PROTONIX PO SCH (11:55)
[2019-05-10] MEDS: THERAGRAN-M Tab PO SCH (11:55)
[2019-05-10] MEDS: ZESTRIL PO SCH (11:55)
[2019-05-10] MEDS: CLARITIN PO SCH (11:55)
[2019-05-10] MEDS: LOPRESSOR PO SCH (11:56)
[2019-05-10] MEDS: SODIUM CHLORIDE FLUSH SYRINGE 10 ML IV SCH (11:57)
--- NOTE | 2019-05-10 13:17 | Consultation ---
History of Present Illness Consult date: 05/10/19 History of present illness: 59-year-old female with history of coronary artery disease, hypertension, vitamin D deficiency, hyperlipidemia, GERD, asthma, depression, arthritis and chronic pain comes in for left-sided chest pain. Chest pain is intermittent in nature with radiation to the neck and left upper extremity. Intermittent in nature. No diaphoresis. No shortness of breath, orthopnea, pnd, palpitations, dizziness or syncope. Past History Past Medical History: acute OH, arthritis, GERD, hypertension Past Surgical History: appendectomy, , Other (s/p coronary PCI, ovarian cyst removal) Social history: smoking. denies: alcohol abuse, prescription drug abuse Family history: no significant family history Medications and Allergies Allergies Allergy/AdvReac Type Severity Reaction Status Date / Time Penicillins Allergy Unknown Verified 05/09/19 10:41 Home Medications Medication Instructions Recorded Confirmed Last Taken Type Aspirin 325 mg PO QDAY #30 tablet 05/15/14 05/09/19 05/09/19 Rx Isosorbide Mononitrate [Isosorbide 30 mg PO DAILY #30 tab.er.24h 05/15/14 05/09/19 05/09/19 Rx Mononitrate ER] Lisinopril [Zestril TAB] 5 mg PO QDAY #30 tablet 05/15/14 05/09/19 05/09/19 Rx Cholecalciferol (Vitamin D3) 3,000 unit PO DAILY 06/05/15 05/09/19 05/09/19 History [Vitamin D3] Multivit-Min/FA/Calcium/Vit K1 1 each PO DAILY 06/05/15 05/09/19 05/09/19 History [Women's 50+ Daily Tablet] Atorvastatin [Lipitor Tab] 40 mg PO QHS #30 tab 10/22/15 05/09/19 05/09/19 Rx Famotidine [Pepcid] 20 mg PO BID #60 tablet 10/22/15 05/09/19 05/09/19 Rx ALBUTEROL NEB's [Proventil 0.083% 2.5 mg IH Q4H PRN #25 neb 01/25/16 05/09/19 05/09/19 Rx NEBS] Amitriptyline [Elavil] 10 mg PO QHS #30 tab 01/25/16 05/09/1905/09/19 Rx Folic Acid [Folvite] 1 mg PO QDAY #30 tablet 01/25/16 05/09/19 05/09/19 Rx Ipratropium/Albuterol Sulfate 1 ampul IH TIDRT #30 ampul.neb 01/25/16 05/09/19 05/09/19 Rx [DUONEB *Not for PRN Use*] Multivitamin Tab W-MINERAL 1 each PO QDAY #30 tablet 01/25/16 05/09/19 05/09/19 Rx [Multiple Vitamin/Mineral (Theragran M)] [place]-3 Fatty Acids/Fish Oil [Fish 1 each PO DAILY #30 tab 01/25/16 05/09/19 05/09/19 Rx Oil] Pantoprazole [Protonix TAB] 20 mg PO BID #60 tablet. 02/04/16 05/09/19 05/09/19 Rx Cetirizine HCl [All Day Allergy] 10 mg PO DAILY 08/27/16 05/09/19 05/09/19 History Ibuprofen [Motrin] 800 mg PO Q8HR PRN #30 tablet 08/27/16 05/09/19 05/04/19 Rx Metoprolol [Lopressor TAB] 25 mg PO BID 08/27/16 05/09/19 05/09/19 History Ondansetron [Zofran Odt] 4 mg PO Q8HR PRN #20 tab.rapdis 08/27/16 05/09/19 05/09/19 Rx Oxycodone HCl/Acetaminophen 1 each PO Q6HR PRN #20 tablet 08/27/16 05/09/19 05/09/19 Rx [Percocet 10/325 mg] Prednisone [predniSONE 10 mg 10 mg PO .TAPER #1 tab.ds.pk 08/27/16 05/09/19 05/07/19 Rx (6-Day Pack, 21 Tabs)] Sennosides [Senokot] 8.6 mg PO DAILY 08/27/16 05/09/19 05/09/19 History methOCARBAMOL [Robaxin TAB] 500 mg PO Q6H 08/27/16 05/09/19 05/09/19 History oxyCODONE /ACETAMINOPHEN [Percocet 1 tab PO Q6HR PRN 08/27/16 05/09/19 05/09/19 History 5/325] traMADol [Ultram] 50 mg PO Q6HR PRN 08/27/16 05/09/19 05/09/19 History Naproxen [Naprosyn TAB] 500 mg PO BID PRN #14 tablet 09/05/16 05/09/19 05/09/19 Rx Ibuprofen [Motrin] 600 mg PO Q8H PRN #20 tablet 03/14/17 05/09/19 05/09/19 Rx Active Meds: Active Medications Acetaminophen (Tylenol) 650 mg PO Q4H PRN PRN Reason: Pain MILD(1-3)/Fever >100.5/KELLY Albuterol (Proventil) 2.5 mg IH Q4H PRN PRN Reason: Shortness Of Breath Albuterol/Ipratropium (Duoneb *Not For Prn Use*) [address] [facility] Last Admin: 05/10/19 11:02 Dose: 1 ampul Documented by: Amitriptyline HCl (Elavil) [address] [facility] Last Admin: 05/09/19 22:13 Dose: 10 mg Documented by: Aspirin (Aspirin) [address] [facility] Last Admin: 05/10/19 11:54 Dose: 325 mg Documented by: Atorvastatin Calcium (Lipitor) [address] [facility] Last Admin: 05/09/19 22:13 Dose: 40 mg Documented by: Cholecalciferol (Vitamin D3) 3,[address] [facility] Last Admin: 05/10/19 11:54 Dose: 3,000 unit Documented by: Folic Acid (Folvite) [address] [facility] Last Admin: 05/10/19 11:55 Dose: 1 mg Documented by: Hydromorphone HCl (Dilaudid) 0.5 mg IV Q3H PRN PRN Reason: Pain , Severe (7-10) Last Admin: 05/10/19 11:54 Dose: 0.5 mg Documented by: Ibuprofen (Ibuprofen) 600 mg PO Q8H PRN PRN Reason: Pain Isosorbide Mononitrate (Imdur) [address] [facility] Last Admin: 05/10/19 11:55 Dose: 30 mg Documented by: Lisinopril (Zestril) [address] [facility] Last Admin: 05/10/19 11:55 Dose: 5 mg Documented by: Loratadine (Claritin) [address] [facility] Last Admin: 05/10/19 11:55 Dose: 10 mg Documented by: Methocarbamol (Robaxin) [address] [facility] Last Admin: 05/10/19 11:57 Dose: Not Given Documented by: Metoclopramide HCl (Reglan) 10 mg IV Q6H PRN PRN Reason: Nausea And Vomiting Metoprolol Tartrate (Lopressor) [address] [facility] Last Admin: 05/10/19 11:56 Dose: 25 mg Documented by: Multivitamins/Minerals (Theragran-M Tab) [address] [facility] Last Admin: 05/10/19 11:55 Dose: 1 each Documented by: Ondansetron HCl (Zofran Odt) 4 mg PO Q8HR PRN PRN Reason: Nausea And Vomiting Last Admin: 05/10/19 11:56 Dose: 4 mg Documented by: Ondansetron HCl (Zofran) 4 mg IV Q8H PRN PRN Reason: Nausea And Vomiting Last Admin: 05/10/19 05:38 Dose: 4 mg Documented by: Oxycodone/Acetaminophen (Percocet 5/325) 1 tab PO Q6HR PRN PRN Reason: Pain Pantoprazole Sodium (Protonix) [address] [facility] Last Admin: 05/10/19 11:55 Dose: 20 mg Documented by: Sodium Chloride (Sodium Chloride Flush Syringe 10 Ml) [address] [facility] Last Admin: 05/10/19 11:57 Dose: 10 ml Documented by: Sodium Chloride (Sodium Chloride Flush Syringe 10 Ml) 10 ml IV PRN PRN PRN Reason: LINE FLUSH Review of Systems All systems: negative (positives in HPI) Physical Examination Vital Signs Temp Pulse Resp BP Pulse Ox 98 F 64 10 L 122/77 100 05/09/19 09:11 05/09/19 09:11 05/09/19 09:11 05/09/19 09:11 05/09/19 09:11 General appearance: no acute distress HEENT: Positive: PERRL, EOMI Neck: Positive: neck supple Cardiac: Positive: Reg Rate and Rhythm, S1/S2 Lungs: Positive: Normal Exam Neuro: Positive: Cranial Nerve 2-12 Intact Abdomen: Positive: Unremarkable Extremities: Absent: edema Results 05/10/19 05:18 05/10/19 05:18 Cardiac Enzymes 05/10/19 Range/Units 05:18 AST 21 (5-40) units/L CBC 05/10/19 Range/Units 05:18 WBC 7.7 (4.5-11.0) K/mm3 RBC 3.59 L (3.65-5.03) M/mm3 Hgb 12.7 (10.1-14.3) gm/dl Hct 37.7 (30.3-42.9) % Plt Count 235 (140-440) K/mm3 Lymph # 3.1 (1.2-5.4) K/mm3 [place] # 0.6 (0.0-0.8) K/mm3 Eos # 0.1 (0.0-0.4) K/mm3 Baso # 0.0 (0.0-0.1) K/mm3 Comprehensive Metabolic Panel 05/10/19 Range/Units 05:18 Sodium 141 (137-145) mmol/L Potassium 3.3 L (3.6-5.0) mmol/L Chloride 101.4 (98-107) mmol/L Carbon Dioxide 25 (22-30) mmol/L BUN 6 L (7-17) mg/dL Creatinine 0.6 L (0.7-1.2) mg/dL Glucose 86 (65-100) mg/dL Calcium 8.9 (8.4-10.2) mg/dL AST 21 (5-40) units/L ALT 15 (7-56) units/L Alkaline Phosphatase 87 (35-129) units/L Total Protein 6.6 (6.3-8.2) g/dL Albumin 4.0 (3.9-5) g/dL EKG interpretations - Telemetry EKG Rhythm: Sinus Rhythm Assessment and Plan (1) Chest pain Chest pain rule out [place] protocol Serial troponins negative Lexiscan today is negative for stress induced ischemic Recommend aggressive risk factor modification (2) Hyperlipidemia high intensity statin recommended (3) Hypertension Maximize medical therapy as tolerated (4) Obstructive airway disease management per primary (5) Coronary artery disease Recommend medical therapy with BB, ASA, and high intensity statin Continue isosorbide mononitrate and aspirin (6) GERD (gastroesophageal reflux disease) Management per primary (7) Nicotine dependence Recommended cessation
--- NOTE | 2019-05-10 15:12 | Discharge Summary ---
Providers - Providers Date of Admission: 05/09/19 12:43 Date of discharge: 05/10/19 Attending physician: YASMANI SALDIVAR 05/09/19 20:14 Consult to Physician [CONS] Routine Comment: Consulting Provider: KRISHAN MAJOR Physician Instructions: Reason For Exam: chest pain Primary care physician: PAXTON PENA Hospitalization Reason for admission: Chest pain Condition: Stable Disposition: DC-01 TO HOME OR SELFCARE Time spent for discharge: 32 min Core Measure Documentation - Palliative Care Palliative Care/ Comfort Measures: Not Applicable - Core Measures Any of the following diagnoses?: none Exam - Constitutional Vitals: Temp Pulse Resp BP Pulse Ox 98.3 F 82 18 127/86 100 05/10/19 07:44 05/10/19 11:56 05/10/19 11:24 05/10/19 11:56 05/10/19 08:00 General appearance: Present: no acute distress, well-nourished - EENT Eyes: Present: PERRL, EOM intact - Neck Neck: Present: supple, normal ROM - Respiratory Respiratory effort: normal Respiratory: bilateral: diminished, negative: rales, rhonchi, wheezing - Cardiovascular Rhythm: regular Heart Sounds: Present: S1 & S2 - Extremities Extremities: no ischemia, No edema - Abdominal General gastrointestinal: Present: soft, non-tender, non-distended, normal bowel sounds - Integumentary Integumentary: Present: clear, warm - Musculoskeletal Musculoskeletal: strength equal bilaterally, generalized weakness - Psychiatric Psychiatric: appropriate mood/affect, cooperative - Neurologic Neurologic: moves all extremities Plan Activity: no restrictions Diet: other (cardiac diet) Special Instructions: smoking cessation Additional Instructions: Smoking cessation. Advise nicotine patch. If you have chest pain or shortness of breath,contact MD or go to ER Follow up with: PAXTON PENA MD [Primary Care Provider] - 3-5 Days TIFFANI FERNANDES MD [Staff Physician] - 7 Days Prescriptions: Nicotine [Habitrol] 14 mg TD DAILY #30 patch Famotidine [Pepcid] 20 mg PO BID #60 tablet
--- NOTE | 2019-05-11 23:04 | Treadmill Report ---
THALLIUM STRESS TEST REPORT LEFT VENTRICLE: Left ventricular chamber size is within normal spread. Perfusion study demonstrates homogeneous uptake of the tracer in all segments, no significant perfusion defects identified. Gated analysis suggests very mild decrease in left ventricular dysfunction with ejection fraction calculated at 48%. CONCLUSION: No demonstrable ischemia on thallium perfusion imaging. Recommend clinical correlation and echocardiographic reassessment of left ventricular systolic function. JOB# [id number] CA/NTS
== END 2019-05-10 18:00 | disposition home or self-care (01) ==
LOC: ED 08:50 → 4A 12:43 → INTOOBSV 12:43
PROVIDERS: ADMIT Internal Medicine; ATTEND Internal Medicine
DX: R07.89 Other chest pain (principal); R11.2 Nausea with vomiting, unspecified; E78.5 Hyperlipidemia, unspecified; I10 Essential (primary) hypertension; J44.9 Chronic obstructive pulmonary disease, unspecified; E55.9 Vitamin D deficiency, unspecified; I25.10 Atherosclerotic heart disease of native coronary artery without angina pectoris; K21.9 Gastro-esophageal reflux disease without esophagitis; F17.210 Nicotine dependence, cigarettes, uncomplicated; J45.909 Unspecified asthma, uncomplicated; F32.9 Major depressive disorder, single episode, unspecified; M19.90 Unspecified osteoarthritis, unspecified site; Z95.1 Presence of aortocoronary bypass graft; Z98.51 Tubal ligation status; Z98.891 History of uterine scar from previous surgery; Z90.49 Acquired absence of other specified parts of digestive tract; Z79.82 Long term (current) use of aspirin
CPT/HCPCS: 36415; 71045; 74177; 78452; 80048; 80053; 81001; 83036; 83690; 83880; 84484; 85025; 85610; 85730; 93005; 93010; 93017; 94640; 96374; 96375; 96376; 99284; 99406; A9270; A9502; G0378; J1170; J2270; J2405; J2785; Q9967; Q0162

== ENCOUNTER 2019-05-25 07:42 | Observation (INO) | payer MEDICARE ==
[2019-05-25] MEDS ORDERED: TETANUS,DIPH,PERTUSS(ACELL) VACCINE 0.5 ML SYRINGE IM ONE (08:14)
--- NOTE | 2019-05-25 08:19 | Emergency Department Report ---
HPI - General Chief Complaint: Fall Time Seen by Provider: 05/25/19 08:10 - HPI HPI: 51-year-old -[place] female presents to the emergency department via EMS from home after the patient got dizzy, passed out, and hit her head on the ground. The patient says that she got up this morning to use the bathroom and get some water. On the way back to her bed with the water the patient got dizzy, fell over and remembers hitting her head on the ground. She then called her daughter, who apparently called for 911, before the patient says that she "rolled over and passed out." She is currently awake and alert and oriented. She has a small laceration to the right eyebrow. Unknown last tetanus vaccination. She has a past medical history of hypertension, coronary artery disease with [place], previous alcohol abuse. The patient says that she drank 2 beers last night which she appears to do nightly. Denies any illicit drugs. Patient says that she had one episode of feeling dizzy on Wednesday, 2 days ago. Primary care physician is Dr. Priscila Patel. ED Past Medical Hx - Past Medical History Previous Medical History?: Yes Hx Hypertension: Yes (2011) Hx Heart Attack/AMI: Yes (2013) Hx Congestive Heart Failure: No Hx Diabetes: No Hx Deep Vein Thrombosis: No Hx Pulmonary Embolism: No Hx Sickle Cell Disease: No Hx Arthritis: Yes Hx Asthma: Yes Hx COPD: Yes Hx Tuberculosis: No Hx HIV: No Additional medical history: sciatica,DIVERTICULITIS. CAD, stents - Surgical History Past Surgical History?: Yes Hx Coronary Stent: Yes Hx Open Heart Surgery: No Hx Pacemaker: No Hx Internal Defibrillator: No Hx Cholecystectomy: No Hx Appendectomy: Yes Hx Breast Surgery: No Additional Surgical History: Tubal ligation, 2 C-sections - Social History Smoking Status: Current Every Day Smoker Substance Use Type: Alcohol - Medications Home Medications: Home Medications Medication Instructions Recorded Confirmed Last Taken Type Aspirin 325 mg PO QDAY #30 tablet 05/15/14 05/25/19 05/24/19 Rx Isosorbide Mononitrate [Isosorbide 30 mg PO DAILY #30 tab.er.24h 05/15/14 05/25/19 05/24/19 Rx Mononitrate ER] Lisinopril [Zestril TAB] 5 mg PO QDAY #30 tablet 05/15/14 05/25/19 05/24/19 Rx Cholecalciferol (Vitamin D3) 3,000 unit PO DAILY 06/05/15 05/25/19 05/24/19 History [Vitamin D3] Atorvastatin [Lipitor] 40 mg PO QHS #30 tab 10/22/15 05/25/19 05/24/19 Rx ALBUTEROL NEB's [Proventil 0.083% 2.5 mg IH Q4H PRN #25 neb 01/25/16 05/25/19 05/24/19 Rx NEBS] Amitriptyline [Elavil] 10 mg PO QHS #30 tab 01/25/16 05/25/19 05/24/19 Rx Folic Acid [Folvite] 1 mg PO QDAY #30 tablet 01/25/16 05/25/19 05/24/19 Rx Ipratropium/Albuterol Sulfate 1 ampul IH TIDRT #30 ampul.neb 01/25/16 05/25/19 05/24/19 Rx [DUONEB *Not for PRN Use*] Multivitamin Tab W-MINERAL 1 each PO QDAY #30 tablet 01/25/16 05/25/19 05/24/19 Rx [Multiple Vitamin/Mineral (Theragran M)] [place]-3 Fatty Acids/Fish Oil [Fish 1 each PO DAILY #30 tab 01/25/16 05/25/19 05/24/19 Rx Oil] Cetirizine HCl [All Day Allergy] 10 mg PO DAILY 08/27/16 05/25/19 05/21/19 History Metoprolol [Lopressor TAB] 25 mg PO BID 08/27/16 05/25/19 05/24/19 History Ondansetron [Zofran ODT TAB] 4 mg PO Q8HR PRN #20 tab.rapdis 08/27/16 05/25/19 05/22/19 Rx Oxycodone HCl/Acetaminophen 1 each PO Q6HR PRN #20 tablet 08/27/16 05/25/19 05/24/19 Rx [Percocet 10/325 mg] Prednisone [predniSONE 10 mg 10 mg PO .TAPER #1 tab.ds.pk 08/27/16 05/25/19 05/22/19 Rx (6-Day Pack, 21 Tabs)] Sennosides [Senokot] 8.6 mg PO DAILY 08/27/16 05/25/19 05/24/19 History methOCARBAMOL [Robaxin TAB] 500 mg PO Q6H 08/27/16 05/25/19 05/24/19 History traMADol [Ultram] 50 mg PO Q6HR PRN 08/27/16 05/25/19 05/24/19 History Famotidine [Pepcid] 20 mg PO BID #60 tablet 05/10/19 05/25/19 05/21/19 Rx Nicotine [Habitrol] 14 mg TD DAILY #30 patch 05/10/19 05/25/19 05/21/19 Rx ED Review of Systems ROS: Stated complaint: FALL Other details as noted in HPI Comment: All other systems reviewed and negative Constitutional: denies: chills, fever Eyes: denies: eye pain, vision change ENT: denies: ear pain, throat pain Respiratory: denies: cough, shortness of breath Cardiovascular: syncope. denies: chest pain Gastrointestinal: denies: abdominal pain, vomiting Genitourinary: denies: dysuria, discharge Musculoskeletal: denies: back pain, arthralgia Skin: denies: rash, lesions Neurological: paresthesias, other (dizziness) Physical Exam - Physical Exam Vital Signs: Vital Signs 05/25/19 08:07 Temperature 97.6 F Pulse Rate 64 Respiratory 16 Rate Blood Pressure 110/79 Blood Pressure 110/79 [Left] O2 Sat by Pulse 100 Oximetry Physical Exam: GENERAL: The patient is well-developed well-nourished. HENT: Normocephalic. Patient has moist mucous membranes. EYES: Extraocular motions are intact. Pupils equal reactive to light bilaterally. No nystagmus. NECK: Supple. Trachea is midline. CHEST/LUNGS: Clear to auscultation. There is no respiratory distress noted. HEART/CARDIOVASCULAR: Regular. There is no tachycardia. There is no murmur. ABDOMEN: Abdomen is soft, nontender. Patient has normal bowel sounds. There is no abdominal distention. SKIN: Skin is warm and dry. There is a vertical right eyebrow laceration that is about 2 cm in length, linear, superficial. NEURO: The patient is awake, alert, and oriented. The patient is cooperative. The patient has no focal neurologic deficits. Normal speech. Cranial nerves II through XII grossly intact. MUSCULOSKELETAL: There is no tenderness or deformity. There is no limitation range of motion. There is no evidence of acute injury. ED Course Vital Signs 05/25/19 08:07 Temperature 97.6 F Pulse Rate 64 Respiratory 16 Rate Blood Pressure 110/79 Blood Pressure 110/79 [Left] O2 Sat by Pulse 100 Oximetry - Laceration /Wound Repair Right Eye Wound Location: face (right eyebrow) Wound Length (cm): 2 Wound's Depth, Shape: superficial, linear Wound Explored: clean Anesthesia: 1% Lidocaine Volume Anesthetic (ccs): 2 Wound Repaired With: sutures Suture Size/Type: 6:0 Number of Sutures: 4 Layer Closure?: No Sterile Dressing Applied?: Yes ED Medical Decision Making - Lab Data Result diagrams: 05/25/19 08:19 05/25/19 08:19 - EKG Data -: EKG Interpreted by [facility] EKG shows normal: sinus rhythm, axis, intervals, QRS complexes, ST-T waves Rate: normal - EKG Data When compared to previous EKG there are: previous EKG unavailable Interpretation: normal EKG - Radiology Data Radiology results: report reviewed CT head without contrast INDICATION : MAIN: Syncope, head trauma LOC, HEADACHE X 5 HOURS. TECHNIQUE: Axial imaging performed from the skull apex through the skull base without the use of contrast. All CT scans at this location are performed using CT dose reduction for ALARA by means of automated exposure control. 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 No suspicious hypodensity. No hemorrhage, mass or mass effect. Ventricles: Ventricles are normal in size and appear symmetric. Soft tissues: Soft tissues including the orbits appear normal. Bones: No acute osseous abnormality. Sinuses: Sinuses and mastoid air cells are clear. IMPRESSION: No acute change. CT angio head INDICATION / CLINICAL INFORMATION: 59 years Female; Dizziness, Syncope, KELLY. TECHNIQUE: Thin cut axial images obtained through the head during IV bolus contrast administration. Sagittal, coronal, and 3 plane MIP reconstructions performed by the technologist. NASCET type criteria used evaluate stenoses. Automated exposure control utilized for radiation reduction purposes. COMPARISON: None available. FINDINGS: INTERNAL CAROTID ARTERIES: No significant narrowing appreciated. VERTEBROBASILAR SYSTEM: No significant narrowing appreciated. DISTAL BRANCHES: Distal branches of the anterior, middle, and posterior cerebral arteries are fairly symmetric in appearance and number. ANEURYSM: None identified. ADDITIONAL FINDINGS: Remainder of the surrounding soft tissues are grossly normal. IMPRESSION: No significant abnormality on this CTA of the head. CT angio neck INDICATION / CLINICAL INFORMATION: 59 years Female; Dizziness, Syncope, KELLY. TECHNIQUE: Thin cut axial images obtained through the head during IV bolus contrast administration. Sagittal, coronal, and 3 plane MIP reconstructions performed by the technologist. NASCET type criteria used evaluate stenoses. All CT scans at this location are performed using CT dose reduction for ALARA by means of automated exposure control. COMPARISON: None available. FINDINGS: ARCH: Near bovine arch configuration noted. CAROTID ARTERIES: The visualized common and internal carotid arteries are widely patent. VERTEBRAL ARTERIES: Codominant vertebral system seen. No significant stenosis appreciated. ADDITIONAL FINDINGS: Patchy appearance seen to the parotid glands - chronic sialadenitis or Sjogren's syndrome might be considered. IMPRESSION: No significant stenosis appreciated on this CTA of the neck. - Medical Decision Making This patient presents after having some dizziness, a fall with a closed head i njury and subsequent syncope. She has a right eyebrow laceration. CT scan of the head without contrast was done that does not show any bleed, shift, mass, acute ischemia, or any other acute process. Patient's labs have been mostly unremarkable. The laceration was repaired with 4 simple interrupted sutures. Patient was given some pain medication for her headache, IV fluid resuscitation due to some transient hypotension, some Antivert for her dizziness. Multiple times we have attempted to get up the patient to do orthostatic vital signs or to test her ambulation, but the patient appears unstable. She is able to get up and move around with the nursing assistance but without appears as if she will fall. This may be a concussion versus atypical CVA vs other. However the patient does not appear stable enough at this time for discharge home. She will be admitted to the hospital for further evaluation and treatment was accepted for admission by the hospitalist. - Differential Diagnosis concussion, brain bleed, atypical CVA/TIA, Dysrythmia Critical Care Time: No Critical care attestation.: If time is entered above; I have spent that time in minutes in the direct care of this critically ill patient, excluding procedure time. ED Disposition Clinical Impression: Unstable gait Headache Qualifiers: Headache type: unspecified Headache chronicity pattern: unspecified pattern Intractability: not intractable Qualified Code(s): R51 - Headache Syncope Qualifiers: Syncope type: unspecified Qualified Code(s): R55 - Syncope and collapse Laceration of eyebrow Qualifiers: Encounter type: initial encounter Laterality: right Qualified Code(s): S01.111A - Laceration without foreign body of right eyelid and periocular area, initial encounter Disposition: DC-09 OP ADMIT IP TO THIS HOSP Is pt being admited?: Yes Condition: Fair Time of Disposition: 15:07
[2019-05-25 08:56] LABS: Basophils % (Auto) 0.6 % (0.0-1.8); Eosinophils % (Auto) 0.7 % (0.0-4.3); Hematocrit 36.8 % (30.3-42.9); Hemoglobin 12.8 gm/dl (10.1-14.3); Lymphocytes % (Auto) 30.5 % (13.4-35.0); Mean Corpuscular HGB Conc 35 % (30-34); Mean Corpuscular Volume 104 fl (79-97); Monocytes # (Auto) 0.6 K/mm3 (0.0-0.8); Platelet Count 250 K/mm3 (140-440); Red Blood Count 3.54 M/mm3 (3.65-5.03)
--- NOTE | 2019-05-25 09:19 | Cat Scan Report ---
CT head without contrast INDICATION : MAIN: Syncope, head trauma LOC, HEADACHE X 5 HOURS. TECHNIQUE: Axial imaging performed from the skull apex through the skull base without the use of con trast. All CT scans at this location are performed using CT dose reduction for ALARA by means of aut omated exposure control. 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 No suspicious hypodensity. No hemorr nevin, mass or mass effect. Ventricles: Ventricles are normal in size and appear symmetric. Soft tissues: Soft tissues including the orbits appear normal. Bones: No acute osseous abnormality. Sinuses: Sinuses and mastoid air cells are clear. IMPRESSION: No acute change. Signer Name: Eliecer Martin MD Signed: 05/25/2019 9:15 AM Workstation Name: [id number]
[2019-05-25] MEDS ORDERED: MORPHINE 4 MG/1 ML INJ IV ONE ×2 (09:25→13:46)
[2019-05-25 09:26] LABS: Alanine Aminotransferase 23 units/L (7-56); Albumin 4.4 g/dL (3.9-5); BUN/Creatinine Ratio 18; Blood Urea Nitrogen 9 mg/dL (7-17); Calcium 9.5 mg/dL (8.4-10.2); Hemolysis Index 1
--- NOTE | 2019-05-25 09:37 | XRay Report ---
CHEST 1 VIEW INDICATION / CLINICAL INFORMATION: cough. Chest pain after fall this morning. COMPARISON: Time 06/18/19 FINDINGS: SUPPORT DEVICES: None. HEART / MEDIASTINUM: No significant abnormality. LUNGS / PLEURA: No significant pulmonary or pleural abnormality. No pneumothorax. ADDITIONAL FINDINGS: No significant additional findings. IMPRESSION: 1. No acute findings. No significant change. Signer Name: Zhanna Moscoso MD Signed: 05/25/2019 9:33 AM Workstation Name: [id number]
[2019-05-25 09:45] LABS: Bilirubin,Urine NEG (Negative); Blood,Urine NEG (Negative); Color,Urine Yellow (Yellow); Protein,Urine <15 mg/dL mg/dL (Negative); Urobilinogen,Urine < 2.0 mg/dL (<2.0)
[2019-05-25] MEDS ORDERED: ONDANSETRON 4 MG/2 ML INJ ONE (09:49)
[2019-05-25] MEDS ORDERED: SODIUM CHLORIDE 0.9% 1000 ML 1,000 ML ONE ×2 (09:49→14:35)
[2019-05-25 09:52] LABS: Amphetamine Screen,Urine PRESUMPTIVE NEGATIVE; Benzodiazepines Screen,Urine PRESUMPTIVE NEGATIVE; Cocaine Screen,Urine PRESUMPTIVE NEGATIVE; Methadone Screen,Urine PRESUMPTIVE NEGATIVE
[2019-05-25] MEDS ORDERED: ONDANSETRON 4 MG/2 ML INJ IV ONE (09:55)
[2019-05-25] MEDS ORDERED: SODIUM CHLORIDE 0.9% 1000 ML 1,000 ML IV ONE ×2 (09:55→15:09)
[2019-05-25] MEDS ORDERED: LIDOCAINE-MPF (1%) 10 MG/1 ML VIAL 5 ML INFILTRATI ONE (10:01)
[2019-05-25 10:04] LABS: Cannabinoid Screen,Urine PRESUMPTIVE POSITIVE
[2019-05-25 10:24] LABS: RBC,Urine < 1.0 /HPF (0.0-6.0); WBC,Urine < 1.0 /HPF (0.0-6.0)
[2019-05-25 10:49] LABS: Opiate Screen,Urine PRESUMPTIVE NEGATIVE
[2019-05-25] MEDS ORDERED: MECLIZINE 25 MG TAB PO ONE (11:42)
--- NOTE | 2019-05-25 14:19 | Cat Scan Report ---
CT angio head INDICATION / CLINICAL INFORMATION: 59 years Female; Dizziness, Syncope, KELLY. TECHNIQUE: Thin cut axial images obtained through the head during IV bolus contrast administration. S agittal, coronal, and 3 plane MIP reconstructions performed by the technologist. NASCET type criteria used evaluate stenoses. Automated exposure control utilized for radiation reduction purposes. COMPARISON: None available. FINDINGS: INTERNAL CAROTID ARTERIES: No significant narrowing appreciated. VERTEBROBASILAR SYSTEM: No significant narrowing appreciated. DISTAL BRANCHES: Distal branches of the anterior, middle, and posterior cerebral arteries are fairly symmetric in appearance and number. ANEURYSM: None identified. ADDITIONAL FINDINGS: Remainder of the surrounding soft tissues are grossly normal. IMPRESSION: No significant abnormality on this CTA of the head. Signer Name: Kike Washington MD, III Signed: 05/25/2019 2:15 PM Workstation Name: [id number]
--- NOTE | 2019-05-25 14:25 | Cat Scan Report ---
CT angio neck INDICATION / CLINICAL INFORMATION: 59 years Female; Dizziness, Syncope, KELLY. TECHNIQUE: Thin cut axial images obtained through the head during IV bolus contrast administration. S agittal, coronal, and 3 plane MIP reconstructions performed by the technologist. NASCET type criteria used evaluate stenoses. All CT scans at this location are performed using CT dose reduction for ALAR A by means of automated exposure control. COMPARISON: None available. FINDINGS: ARCH: Near bovine arch configuration noted. CAROTID ARTERIES: The visualized common and internal carotid arteries are widely patent. VERTEBRAL ARTERIES: Codominant vertebral system seen. No significant stenosis appreciated. ADDITIONAL FINDINGS: Patchy appearance seen to the parotid glands - chronic sialadenitis or Sjogren's syndrome might be considered. IMPRESSION: No significant stenosis appreciated on this CTA of the neck. Signer Name: Kike Washington MD, III Signed: 05/25/2019 2:21 PM Workstation Name: [id number]
[2019-05-25] MEDS: HYDROmorphone 1 MG/1 ML INJ IV PRN (20:40)
[2019-05-25] MEDS ORDERED: NON-FORMULARY EACH (Oxycodone Hcl/Acetaminophen [Percocet 10/325 Mg] 1 EACH) PO PRN (22:24)
[2019-05-25] MEDS ORDERED: ALBUTEROL 2.5 MG/3 ML NEBU IH PRN (22:24)
[2019-05-25] MEDS ORDERED: traMADol 50 MG TAB PO PRN (22:24)
--- NOTE | 2019-05-25 22:24 | Event Note ---
Date: 05/25/19 See history and physical in the reports Syncope Orthostatic hypotension History of hypertension
[2019-05-25] MEDS ORDERED: ONDANSETRON 4 MG/2 ML INJ IV PRN (22:28)
[2019-05-25] MEDS ORDERED: ACETAMINOPHEN 325 MG TAB PO PRN (22:28)
[2019-05-25] MEDS ORDERED: POTASSIUM CHLORIDE ER 20 MEQ TAB PO ONE (22:40)
[2019-05-25] MEDS: ONDANSETRON 4 MG ODT TAB PO PRN (22:49)
[2019-05-25] MEDS ORDERED: SODIUM CHLORIDE 0.9% 1000 ML 1,000 ML IV SCH (23:00)
--- NOTE | 2019-05-25 23:16 | History and Physical Report ---
CHIEF COMPLAINT: 1. Fall and syncope. 2. Laceration to the right eyebrow. HISTORY OF PRESENT ILLNESS: A 59-year-old with a history of hypertension and coronary artery disease, comes to the Emergency Room after falling down and passing out. In the process, the patient sustained a small laceration to the right eyebrow. On the way after getting up, the patient still felt dizzy and remembered hitting her head on the ground. Called 911 and came here. No chest pain. Small laceration to the right eyebrow. Unknown last tetanus vaccination. No exacerbating or relieving factors. First episode of syncope. Had acute ID in the past. No stents. PAST MEDICAL HISTORY: As mentioned, hypertension and acute ID in 2014. Arthritis. COPD. Diverticulitis and stents in the past. PAST SURGICAL HISTORY: Stents and appendectomy in the past. Tubal ligation and 2 C-sections. SOCIAL HISTORY: Current every-day smoker. Alcohol occasionally. FAMILY HISTORY: Hypertension. REVIEW OF SYSTEMS: Significant for passing out and syncopizing. Sustaining a laceration to the right eyebrow. Otherwise, review of systems negative. No seizures. PHYSICAL EXAMINATION: GENERAL: Middle-aged female, cooperative during examination. VITAL SIGNS: Initial blood pressure was 110/79, temperature 97.6, pulse is 64, respirations are 16. In the Emergency Room, blood pressure dropped down to 86/61, patient also orthostatic. HEENT: Unremarkable. Pupils equal and reactive. Small laceration on the right eyebrow, which was sutured. NECK: Supple. No carotid artery bruit, no thyromegaly. LUNGS: Clear to auscultation and percussion. Good air entry. CARDIOVASCULAR: S1, S2 heard. No gallop, no murmur, no rub. Apical impulse in left fifth intercostal space and midclavicular line. ABDOMEN: Soft and benign. No hepatosplenomegaly. No guarding, no rigidity. Hernial orifices are normal. EXTREMITIES: Good pedal pulses. No pedal edema. CENTRAL NERVOUS SYSTEM: Alert and oriented x 4, nonfocal exam. SKIN: Normal. LABORATORY DATA: Significant for white count of 6600, H and H are 12.8 and 36.8. MCV, MCH, MCHC are high. Sodium is 132, potassium is 3.5, BUN and creatinine 9 and 0.5. Urine is normal, no infection. Drug screen is positive for marijuana. EKG shows normal sinus rhythm. No acute ST-T wave changes. Head CT shows no acute changes. Chest x-ray shows no acute findings. Head CTA shows no significant abnormality on CT of the head. Neck CTA was normal. No sign of significant stenosis. ASSESSMENT AND PLAN: 1. Syncope. Carotid duplex scan was not ordered because CTA of the head and neck were negative. Echocardiogram was ordered to rule out any valvular abnormalities and aortic stenosis or hypertrophic cardiomyopathy. Lexiscan was not ordered because the patient is orthostatic and syncope may be secondary to orthostatic hypotension. 2. Orthostatic hypotension. We will hold the lisinopril for the time being. We will just continue the metoprolol. Recheck the orthostatics. 3. Hypertension. Continue metoprolol, but hold the lisinopril. 4. Coronary artery disease. Continue aspirin. 5. Hyponatremia. IV normal saline initiated. Probably secondary to diuretics. 6. Hypokalemia, mild, supplemented. 7. Deep venous thrombosis prophylaxis, Lovenox 40 mg subcutaneous daily and gastrointestinal prophylaxis initiated. JOB# [id number] VSMillie/NTS
[2019-05-25] MEDS: FAMOTIDINE 20 MG TAB PO SCH (23:18)
[2019-05-25] MEDS: METOPROLOL TARTRATE 25 MG TAB PO SCH (23:19)
[2019-05-26] MEDS: oxyCODONE /ACETAMINOPHEN 5-325MG TAB PO PRN ×2 (03:44→18:17)
[2019-05-26 07:25] LABS: Alanine Aminotransferase 20 units/L (7-56); Albumin 4.1 g/dL (3.9-5); BUN/Creatinine Ratio 10; Blood Urea Nitrogen 6 mg/dL (7-17); Calcium 8.6 mg/dL (8.4-10.2); Hemolysis Index 8
[2019-05-26] MEDS: IPRATROPIUM/ALBUTEROL SULFATE 3 ML AMPUL.NEB IH SCH ×3 (08:54→21:32)
[2019-05-26] MEDS ORDERED: CHOLECALCIFEROL 3000 UNIT PO SCH (10:00)
[2019-05-26] MEDS ORDERED: FAMOTIDINE 20 MG TAB PO SCH (10:00)
[2019-05-26] MEDS ORDERED: [UNRECOGNIZED DRUG - REMARK] PO SCH (10:00)
[2019-05-26] MEDS: METOPROLOL TARTRATE 25 MG TAB PO SCH ×2 (11:30→21:51)
[2019-05-26] MEDS: FAMOTIDINE 20 MG TAB PO SCH ×2 (11:30→21:51)
[2019-05-26] MEDS: CHOLECALCIFEROL (VIT D3) 1000 UNIT TAB PO SCH (11:30)
[2019-05-26] MEDS: OMEGA-3 FATTY ACIDS/FISH OIL 1 GRAM CAP PO SCH (11:30)
[2019-05-26] MEDS: FOLIC ACID 1 MG TAB PO SCH (11:31)
[2019-05-26] MEDS: ASPIRIN 325 MG TAB PO SCH (11:31)
[2019-05-26] MEDS: SENNOSIDES 8.6 MG TAB PO SCH (11:32)
[2019-05-26] MEDS: NICOTINE 14 MG/24 HR PATCH TD SCH (11:32)
[2019-05-26] MEDS: LORATADINE (NF) 10 MG TAB PO SCH (11:32)
[2019-05-26] MEDS: MULTIVITAMINS,THER W-MINERALS TAB PO SCH (11:32)
[2019-05-26] MEDS: HYDROmorphone 1 MG/1 ML INJ IV PRN ×2 (11:34→23:26)
--- NOTE | 2019-05-26 16:37 | Progress Note ---
Assessment and Plan - Patient Problems (1) Headache Current Visit: Yes Status: Acute Qualifiers: Headache type: unspecified Headache chronicity pattern: unspecified pattern Intractability: not intractable Qualified Code(s): R51 - Headache Plan to address problem: This point headache was secondary to the fall. She was sure she did not have a headache prior to this. Patient relates having 2 beers the night before and taking medications. (2) Laceration of eyebrow Current Visit: Yes Status: Acute Qualifiers: Encounter type: initial encounter Laterality: right Qualified Code(s): S01.111A - Laceration without foreign body of right eyelid and periocular area, initial encounter (3) Syncope Current Visit: Yes Status: Acute Qualifiers: Syncope type: unspecified Qualified Code(s): R55 - Syncope and collapse Plan to address problem: At present CT head negative. Cardiac isoenzymes negative. Cardiogram pending. No changes on EKG. Patient does not appear orthostatic. I am concerned about the drinking and taking medications at night including blood pressure medicines and Elavil. I have discussed this with patient. (4) ETOHism Current Visit: No Status: Chronic Plan to address problem: Would avoid alcohol intake and medications. (5) HTN (hypertension) Current Visit: Yes Status: Acute (6) HTN (hypertension) Current Visit: Yes Status: Acute Plan to address problem: Patient blood pressure is optimally controlled with metoprolol at present continue medical management. History Interval history: Patient 59-year-old female with a history of hypertension coronary artery disease had a syncopal episode after attempts to go to the bathroom and obtain water to take her medicines. Patient stated that she had no prodromal symptoms however hit the ground and remember hitting her head. Patient came in had a laceration above right eye it was closed sutured. Now patient states she has a headache. Current workup has been unremarkable so far. Patient had CT scan negative. Patient just came back from echocardiogram approximately 20 minutes ago no results so far to rule out valvular heart disease. I did also express my concern about orthostatic hypotension and patient having hypotension with taking for medicines. Patient understands as well. Hospitalist Physical - Constitutional Vitals: Temp Pulse Resp BP Pulse Ox 98.0 F 78 19 126/74 98 05/26/19 04:12 05/26/19 11:31 05/26/19 10:00 05/26/19 11:31 05/26/19 10:00 General appearance: Present: no acute distress, other (lac rt eye) - EENT Eyes: Present: PERRL, EOM intact ENT: hearing intact, clear oral mucosa, dentition normal - Neck Neck: Present: supple - Respiratory Respiratory: bilateral: CTA - Cardiovascular Rhythm: regular - Extremities Extremities: no ischemia, pulses intact, pulses symmetrical, No edema, normal temperature, normal color Peripheral Pulses: within normal limits - Abdominal General gastrointestinal: soft, non-tender, non-distended, normal bowel sounds - Integumentary Integumentary: Present: clear, warm, dry - Psychiatric Psychiatric: appropriate mood/affect, intact judgment & insight, memory intact - Neurologic Neurologic: CNII-XII intact, moves all extremities Results - Labs CBC & Chem 7: 05/25/19 08:19 05/26/19 06:01 Labs: Laboratory Last Values WBC 6.6 K/mm3 (4.5-11.0) 05/25/19 08:19 RBC 3.54 M/mm3 (3.65-5.03) L 05/25/19 08:19 Hgb 12.8 gm/dl (10.1-14.3) 05/25/19 08:19 Hct 36.8 % (30.3-42.9) 05/25/19 08:19 MCV 104 fl (79-97) H 05/25/19 08:19 MCH 36 pg (28-32) H 05/25/19 08:19 MCHC 35 % (30-34) H 05/25/19 08:19 RDW 13.0 % (13.2-15.2) L 05/25/19 08:19 Plt Count 250 K/mm3 (140-440) 05/25/19 08:19 Lymph % (Auto) 30.5 % (13.4-35.0) 05/25/19 08:19 [place] % (Auto) 9.0 % (0.0-7.3) H 05/25/19 08:19 Eos % (Auto) 0.7 % (0.0-4.3) 05/25/19 08:19 Baso % (Auto) 0.6 % (0.0-1.8) 05/25/19 08:19 Lymph # 2.0 K/mm3 (1.2-5.4) 05/25/19 08:19 [place] # 0.6 K/mm3 (0.0-0.8) 05/25/19 08:19 Eos # 0.0 K/mm3 (0.0-0.4) 05/25/19 08:19 Baso # 0.0 K/mm3 (0.0-0.1) 05/25/19 08:19 Seg Neutrophils % 59.2 % (40.0-70.0) 05/25/19 08:19 Seg Neutrophils # 3.9 K/mm3 (1.8-7.7) 05/25/19 08:19 Sodium 140 mmol/L (137-145) D 05/26/19 06:01 Potassium 3.4 mmol/L (3.6-5.0) L 05/26/19 06:01 Chloride 103.0 mmol/L (98-107) 05/26/19 06:01 Carbon Dioxide 22 mmol/L (22-30) 05/26/19 06:01 18 mmol/L 05/26/19 06:01 BUN 6 mg/dL (7-17) L 05/26/19 06:01 0.6 mg/dL (0.7-1.2) L 05/26/19 06:01 Estimated GFR > 60 ml/min 05/26/19 06:01 10 % 05/26/19 06:01 Glucose 117 mg/dL (65-100) H 05/26/19 06:01 POC Glucose 121 (70-105) H 05/26/19 12:12 4.7 % (4-6) 05/25/19 08:19 Calcium 8.6 mg/dL (8.4-10.2) 05/26/19 06:01 0.60 mg/dL (0.1-1.2) 05/26/19 06:01 AST 24 units/L (5-40) 05/26/19 06:01 ALT 20 units/L (7-56) 05/26/19 06:01 73 units/L (35-129) 05/26/19 06:01 < 0.010 ng/mL (0.00-0.029) 05/25/19 08:19 6.7 g/dL (6.3-8.2) 05/26/19 06:01 4.1 g/dL (3.9-5) 05/26/19 06:01 1.6 % 05/26/19 06:01 TSH 0.905 mlU/mL (0.270-4.200) 05/25/19 08:19 Yellow (Yellow) 05/25/19 09:33 Clear (Clear) 05/25/19 09:33 8.0 (5.0-7.0) H 05/25/19 09:33 Ur Specific [place] 1.006 (1.003-1.030) 05/25/19 09:33 <15 mg/dl mg/dL (Negative) 05/25/19 09:33 Neg mg/dL (Negative) 05/25/19 09:33 Tr mg/dL (Negative) 05/25/19 09:33 Neg (Negative) 05/25/19 09:33 Neg (Negative) 05/25/19 09:33 Neg (Negative) 05/25/19 09:33 < 2.0 mg/dL (<2.0) 05/25/19 09:33 Ur Leukocyte Esterase Neg (Negative) 05/25/19 09:33 < 1.0 /HPF (0.0-6.0) 05/25/19 09:33 < 1.0 /HPF (0.0-6.0) 05/25/19 09:33 Presumptive negative 05/25/19 09:33 Presumptive negative 05/25/19 09:33 Ur Barbiturates Screen Presumptive negative 05/25/19 09:33 Ur Phencyclidine Scrn Presumptive negative 05/25/19 09:33 Ur Amphetamines Screen Presumptive negative 05/25/19 09:33 U Benzodiazepines Scrn Presumptive negative 05/25/19 09:33 Presumptive negative 05/25/19 09:33 U Marijuana (THC) Screen Presumptive positive 05/25/19 09:33 Disclamer 05/25/19 09:33 Plasma/Serum Alcohol < 0.01 % (0-0.07) 05/25/19 08:27 - Imaging and Cardiology Chest x-ray: report reviewed CT Scan - head: image reviewed Active Medications - Current Medications Current Medications: Generic Name Dose Route Start Last Admin Trade Name Freq PRN Reason Stop Dose Admin Acetaminophen 650 mg 05/25/19 22:28 Tylenol PO Q4H PRN Pain MILD(1-3)/Fever >100.5/KELLY Albuterol 2.5 mg 05/25/19 22:24 Proventil IH Q4H PRN Shortness Of Breath Albuterol/Ipratropium 1 ampul 05/26/19 08:00 05/26/19 13:47 Duoneb *Not For Prn Use* IH Not Given TIDRT [facility] Amitriptyline HCl 10 mg 05/26/19 22:00 Elavil PO QHS [facility] Aspirin 325 mg 05/26/19 10:00 05/26/19 11:31 Aspirin PO 325 mg QDAY [facility] Administration Atorvastatin Calcium 40 mg 05/26/19 22:00 Lipitor PO QHS [facility] Cholecalciferol 3,000 unit 05/26/19 10:00 05/26/19 11:30 Vitamin D3 PO 3,000 unit DAILY [facility] Administration Famotidine 20 mg 05/25/19 23:00 05/26/19 11:30 Pepcid PO 20 mg BID [facility] Administration Fish Oil 1,000 mg 05/26/19 10:00 05/26/19 11:30 Fish Oil PO 1,000 mg DAILY [facility] Administration Folic Acid 1 mg 05/26/19 10:00 05/26/19 11:31 Folvite PO 1 mg QDAY [facility] Administration Hydromorphone HCl 0.5 mg 05/25/19 20:28 05/26/19 11:34 Dilaudid IV 0.5 mg Q3H PRN Administration Pain , Severe (7-10) Sodium Chloride 1,000 mls @ 75 mls/hr 05/25/19 23:00 Nacl 0.9% 1000 Ml IV DIRECT [facility] Isosorbide Mononitrate 30 mg 05/26/19 10:00 05/26/19 11:31 Imdur PO 30 mg DAILY [facility] Administration Loratadine 10 mg 05/26/19 10:00 05/26/19 11:32 Claritin PO 10 mg DAILY [facility] Administration Methocarbamol 500 mg 05/25/19 23:00 05/26/19 11:33 Robaxin PO 500 mg Q6HR [facility] Administration Metoprolol Tartrate 25 mg 05/25/19 23:00 05/26/19 11:30 Lopressor PO 25 mg BID [facility] Administration Multivitamins/Minerals 1 each 05/26/19 10:00 05/26/19 11:32 Theragran-M Tab PO 1 each QDAY [facility] Administration Nicotine 14 mg 05/26/19 10:00 05/26/19 11:32 Habitrol TD Not Given DAILY [facility] Ondansetron HCl 4 mg 05/25/19 22:24 05/25/19 22:49 Zofran Odt PO 4 mg Q8HR PRN Administration Nausea And Vomiting Ondansetron HCl 4 mg 05/25/19 22:28 Zofran IV Q8H PRN Nausea And Vomiting Oxycodone/Acetaminophen 1 tab 05/25/19 22:28 05/26/19 03:44 Percocet 5/325 PO 1 tab Q6H PRN Administration Pain, Moderate (4-6) Senna 8.6 mg 05/26/19 10:00 05/26/19 11:32 Senokot PO 8.6 mg DAILY [facility] Administration Sodium Chloride 10 ml 05/25/19 23:00 05/26/19 11:34 Sodium Chloride Flush Syringe 10 Ml IV 10 ml BID [facility] Administration Sodium Chloride 10 ml 05/25/19 22:28 Sodium Chloride Flush Syringe 10 Ml IV PRN PRN LINE FLUSH Sodium Chloride 75 ml 05/26/19 17:00 Nacl 0.9% IV DIRECT [facility] Tramadol HCl 50 mg 05/25/19 22:24 Ultram PO Q6HR PRN Pain
[2019-05-26] MEDS ORDERED: SODIUM CHLORIDE 0.9% 100 ML IVPB IV SCH (17:00)
[2019-05-26] MEDS ORDERED: AMITRIPTYLINE 10 MG TAB PO SCH (22:00)
[2019-05-27] MEDS: oxyCODONE /ACETAMINOPHEN 5-325MG TAB PO PRN (04:51)
[2019-05-27] MEDS: ONDANSETRON 4 MG ODT TAB PO PRN (05:40)
[2019-05-27 08:42] VITALS: BP 113/86
[2019-05-27] MEDS: IPRATROPIUM/ALBUTEROL SULFATE 3 ML AMPUL.NEB IH SCH (08:48)
[2019-05-27] MEDS: NICOTINE 14 MG/24 HR PATCH TD SCH (09:34)
[2019-05-27] MEDS: ASPIRIN 325 MG TAB PO SCH (09:35)
[2019-05-27] MEDS: FOLIC ACID 1 MG TAB PO SCH (09:35)
[2019-05-27] MEDS: MULTIVITAMINS,THER W-MINERALS TAB PO SCH (09:35)
[2019-05-27] MEDS: SENNOSIDES 8.6 MG TAB PO SCH (09:35)
[2019-05-27] MEDS: OMEGA-3 FATTY ACIDS/FISH OIL 1 GRAM CAP PO SCH (09:35)
[2019-05-27] MEDS: CHOLECALCIFEROL (VIT D3) 1000 UNIT TAB PO SCH (09:35)
[2019-05-27] MEDS: FAMOTIDINE 20 MG TAB PO SCH (09:35)
[2019-05-27] MEDS: LORATADINE (NF) 10 MG TAB PO SCH (09:35)
[2019-05-27] MEDS: METOPROLOL TARTRATE 25 MG TAB PO SCH (09:36)
[2019-05-27] MEDS: HYDROmorphone 1 MG/1 ML INJ IV PRN (09:45)
--- NOTE | 2019-05-27 10:46 | Discharge Summary ---
Providers - Providers Date of Admission: 05/25/19 15:07 Date of discharge: 05/27/19 Attending physician: ROCHELLE SYKES 05/26/19 02:03 Consult to Wound/ET Nurse [CONS] Routine Reason For Exam: wound eval - right eyebrow Primary care physician: PAXTON PENA Hospitalization Condition: Fair Pertinent studies: Patient CT scan head unremarkable. No bleeding also CT scan head neck also unremarkable echocardiogram shows normal ejection fraction. Ruled out via cardiac isoenzymes. Disposition: DC-01 TO HOME OR SELFCARE - Discharge Diagnoses (1) Headache Status: Acute Qualifiers: Headache type: unspecified Headache chronicity pattern: unspecified pattern Intractability: not intractable Qualified Code(s): R51 - Headache Comment: Patient headache has resolved. Secondary to fall hit her eye. (2) Laceration of eyebrow Status: Acute Qualifiers: Encounter type: initial encounter Laterality: right Qualified Code(s): S01.111A - Laceration without foreign body of right eyelid and periocular area, initial encounter Comment: Follow-up primary care to have sutures removed. (3) Syncope Status: Acute Qualifiers: Syncope type: unspecified Qualified Code(s): R55 - Syncope and collapse Comment: Patient's syncopal episodes most likely secondary to polypharmacy with blood pressure medications causing hypotension. This was also happening prior to this admission. Patient continued to take medications so I suspect orthostatic hypotension. We held lisinopril and place his blood pressure is been optimal. We'll discharge home only on metoprolol for now. Patient is optimally controlled. (4) ETOHism Status: Chronic Comment: No evidence of alcoholism at this point. Patient should not drink and take medications. (5) HTN (hypertension) Status: Acute Comment: 110-113/86 out control with metoprolol. Continue medical management. (6) HTN (hypertension) Status: Acute Core Measure Documentation - Palliative Care Palliative Care/ Comfort Measures: Not Applicable - Core Measures Any of the following diagnoses?: none Exam - Constitutional Vitals: Temp Pulse Resp BP Pulse Ox 98.1 F 76 18 113/86 100 05/27/19 08:38 05/27/19 09:36 05/27/19 08:38 05/27/19 09:36 05/27/19 08:38 General appearance: Present: no acute distress, well-nourished - EENT Eyes: Present: PERRL ENT: hearing intact, clear oral mucosa - Neck Neck: Present: supple, normal ROM - Respiratory Respiratory effort: normal Respiratory: bilateral: CTA - Cardiovascular Heart Sounds: Present: S1 & S2. Absent: rub, click - Extremities Extremities: pulses symmetrical, No edema Peripheral Pulses: within normal limits - Abdominal General gastrointestinal: Present: soft, non-tender, non-distended, normal bowel sounds Female genitourinary: Present: normal - Integumentary Integumentary: Present: clear, warm, dry - Musculoskeletal Musculoskeletal: gait normal, strength equal bilaterally - Psychiatric Psychiatric: appropriate mood/affect, intact judgment & insight - Neurologic Neurologic: CNII-XII intact, moves all extremities Plan Activity: no restrictions Weight Bearing Status: Full Weight Bearing Diet: regular Follow up with: PAXTON PENA MD [Primary Care Provider] - 7 Days Prescriptions: Oxycodone HCl/Acetaminophen [Percocet 10/325 mg] 1 each PO Q6HR PRN #20 tablet PRN Reason: Pain oxyCODONE /ACETAMINOPHEN [Percocet 5/325 mg] 1 tab PO Q6H PRN #14 tablet PRN Reason: Pain, Moderate (4-6)
== END 2019-05-27 13:01 | disposition home or self-care (01) ==
LOC: ED 07:42 → 4A 15:07
PROVIDERS: ADMIT Internal Medicine; ATTEND Internal Medicine
DX: R55 Syncope and collapse (principal); I95.1 Orthostatic hypotension; I10 Essential (primary) hypertension; I25.10 Atherosclerotic heart disease of native coronary artery without angina pectoris; E87.1 Hypo-osmolality and hyponatremia; E87.6 Hypokalemia
CPT/HCPCS: 36415; 70450; 70496; 70498; 71045; 80053; 80307; 81001; 82962; 83036; 84443; 84484; 85025; 90715; 93005; 93010; 93306; 94640; 96361; 96374; 96375; 96376; 99284; A9270; G0008; G0378; J1170; J2270; J2405; J7030; Q9967; 80320; 90471; G0480; Q0162

== ENCOUNTER 2019-06-15 11:24 | Emergency (ER) | payer MEDICARE ==
[2019-06-15 11:36] VITALS: BP 145/100
--- NOTE | 2019-06-15 11:44 | Emergency Department Report ---
Suture/Staple Removal - [facility] Chief Complaint: Laceration/Recheck/Suture Stated Complaint: RT EYEBROW STITCHS REMOVED Time Seen by Provider: 06/15/19 11:35 When Sutures or Vikash Placed: 8-10 Days Ago Wound Location: right eyebrow ED Review of Systems ROS: Stated complaint: RT EYEBROW STITCHS REMOVED Other details as noted in HPI Constitutional: denies: chills, fever Eyes: denies: eye pain, eye discharge, vision change ENT: denies: ear pain, throat pain Respiratory: denies: cough, shortness of breath, wheezing Cardiovascular: denies: chest pain, palpitations Endocrine: no symptoms reported Gastrointestinal: denies: abdominal pain, nausea, diarrhea Genitourinary: denies: urgency, dysuria, discharge Musculoskeletal: denies: back pain, joint swelling, arthralgia Skin: denies: rash, lesions Neurological: denies: headache, weakness, paresthesias Psychiatric: denies: anxiety, depression Hematological/Lymphatic: denies: easy bleeding, easy bruising ED Past Medical Hx - Past Medical History Previous Medical History?: Yes Hx Hypertension: Yes Hx Heart Attack/AMI: Yes Hx Congestive Heart Failure: No Hx Diabetes: No Hx Deep Vein Thrombosis: No Hx Pulmonary Embolism: No Hx Sickle Cell Disease: No Hx Arthritis: Yes Hx Asthma: Yes Hx COPD: Yes Hx Tuberculosis: No Hx HIV: No Additional medical history: sciatica,DIVERTICULITIS. CAD, stents - Surgical History Hx Coronary Stent: Yes Hx Open Heart Surgery: No Hx Pacemaker: No Hx Internal Defibrillator: No Hx Cholecystectomy: No Hx Appendectomy: Yes Hx Breast Surgery: No Additional Surgical History: Tubal ligation, 2 C-sections - Social History Smoking Status: Current Every Day Smoker Substance Use Type: None - Medications Home Medications: Home Medications Medication Instructions Recorded Confirmed Last Taken Type Aspirin 325 mg PO QDAY #30 tablet 05/15/14 05/25/19 05/24/19 Rx Isosorbide Mononitrate [Isosorbide 30 mg PO DAILY #30 tab.er.24h 05/15/14 05/25/19 05/24/19 Rx Mononitrate ER] Cholecalciferol (Vitamin D3) 3,000 unit PO DAILY 06/05/15 05/25/19 05/24/19 History [Vitamin D3] Atorvastatin [Lipitor] 40 mg PO QHS #30 tab 10/22/15 05/25/19 05/24/19 Rx ALBUTEROL NEB's [Proventil 0.083% 2.5 mg IH Q4H PRN #25 neb 01/25/16 05/25/19 05/24/19 Rx NEBS] Amitriptyline [Elavil] 10 mg PO QHS #30 tab 01/25/16 05/25/19 05/24/19 Rx Folic Acid [Folvite] 1 mg PO QDAY #30 tablet 01/25/16 05/25/19 05/24/19 Rx Multivitamin Tab W-MINERAL 1 each PO QDAY #30 tablet 01/25/16 05/25/19 05/24/19 Rx [Multiple Vitamin/Mineral (Theragran M)] [place]-3 Fatty Acids/Fish Oil [Fish 1 each PO DAILY #30 tab 01/25/16 05/25/19 05/24/19 Rx Oil] Cetirizine HCl [All Day Allergy] 10 mg PO DAILY 08/27/16 05/25/19 05/21/19 History Metoprolol [Lopressor TAB] 25 mg PO BID 08/27/16 05/25/19 05/24/19 History Sennosides [Senokot] 8.6 mg PO DAILY 08/27/16 05/25/19 05/24/19 History methOCARBAMOL [Robaxin TAB] 500 mg PO Q6H 08/27/16 05/25/19 05/24/19 History Famotidine [Pepcid] 20 mg PO BID #60 tablet 05/10/19 05/25/19 05/21/19 Rx Nicotine [Habitrol] 14 mg TD DAILY #30 patch 05/10/19 05/25/19 05/21/19 Rx Oxycodone HCl/Acetaminophen 1 each PO Q6HR PRN #20 tablet 05/27/19 Unknown Rx [Percocet 10/325 mg] oxyCODONE /ACETAMINOPHEN [Percocet 1 tab PO Q6H PRN #14 tablet 05/27/19 Unknown Rx 5/325 mg] Suture Removal Exam - Exam General: Vital signs noted. No distress. Alert and acting appropriately. Wound: No Pathologic Erythema, No Tenderness, No Drainage, No Pus, No Wound Dehiscence Other Systems: All other systems reviewed and are unremarkable. ED Course Vital Signs 06/15/19 11:34 Temperature 98.3 F Pulse Rate 80 Respiratory 16 Rate Blood Pressure 145/100 O2 Sat by Pulse 98 Oximetry ED Recheck MDM - Medical Decision Making total of 4 suture removed. patient tolerated well. normal well healing. Patient was instructed to Follow-up with a primary care doctor in 3-5 days or if symptoms worsen and continue return to emergency room as soon as possible. At time of discharge, the patient does not seem toxic or ill in appearance. No acute signs of distress noted. Patient agrees to discharge treatment plan of care. No further questions noted by the patient. Critical care attestation.: If time is entered above; I have spent that time in minutes in the direct care of this critically ill patient, excluding procedure time. ED Disposition Clinical Impression: Visit for suture removal Disposition: DC-01 TO HOME OR SELFCARE Is pt being admited?: No Does the pt Need Aspirin: No Condition: Stable Instructions: Suture Removal (ED) Additional Instructions: Follow-up with a primary care doctor in 3-5 days or if symptoms worsen and continue return to emergency room as soon as possible. Referrals: PRIMARY MD CARMEN [Referring] - 3-5 Days VERO RODRIGUES MD [Staff Physician] - 3-5 Days [facility] [Outside] - 3-5 Days
== END 2019-06-15 11:53 | disposition home or self-care (01) ==
LOC: ED 11:24
DX: S01.111D Laceration without foreign body of right eyelid and periocular area, subsequent encounter (principal); F17.200 Nicotine dependence, unspecified, uncomplicated; I10 Essential (primary) hypertension; J44.9 Chronic obstructive pulmonary disease, unspecified; M19.90 Unspecified osteoarthritis, unspecified site; Z90.49 Acquired absence of other specified parts of digestive tract; Z98.51 Tubal ligation status; Z79.899 Other long term (current) drug therapy; Z79.82 Long term (current) use of aspirin; Z88.0 Allergy status to penicillin; W26.8XXD Contact with other sharp object(s), not elsewhere classified, subsequent encounter